=== PATIENT | female | born 1955 | race Caucasian/White ===

== ENCOUNTER 2020-12-13 15:08 | Observation (INO) ==
[2020-12-13] MEDS ORDERED: OPTIRAY 350 500ml IV ONE (15:18)
--- NOTE | 2020-12-13 15:19 | CT Scan Report ---
CT OF THE HEAD WITHOUT CONTRAST CLINICAL HISTORY: Stroke alert. Left-sided facial numbness. COMPARISON STUDY: No previous studies for comparison. CT DOSE: 537.48 mGy.cm TECHNIQUE: Helical axial images of the head were obtained without IV contrast. Automated exposure con trol was utilized for the study. A dose lowering technique was utilized adhering to the principles o f ALARA. FINDINGS: No acute intracranial hemorrhage, midline shift or mass effect is present. The ventricular system is unremarkable. The basal cisterns are patent. No extra-axial collections are present. There are no findings to suggest acute dural sinus thrombosis or acute territorial infarct. No significant calvarial abnormalities are present. Visualized portions of the sinuses and mastoid air cells are yelena ar. IMPRESSION: No acute intracranial findings. ACT 112: Negative or not required by law. Electronically signed by: Srinivasa Ortez M.D. 12/13/2020 3:18 PM
--- NOTE | 2020-12-13 15:40 | CT Scan Report ---
CT ANGIOGRAPHY OF THE NECK WITH CONTRAST CLINICAL HISTORY: Left-sided facial numbness. Stroke alert. COMPARISON STUDY: No previous studies for comparison. Technique: CT angiography of the carotid and vertebral arteries was obtained using Optiray and 3D rec onstruction on an independent workstation. NASCET criteria was utilized. Automated exposure control was utilized for the study. A dose lowering technique was utilized adhering to the principles of ALA RA. CT DOSE: 547.39 mGy.cm Findings: Lung apices are clear. There is no cervical lymphadenopathy. There is no cervical spine fra cture. Note is made of a short segment severe stenosis at the origin of the right internal carotid ar mando due to atherosclerotic plaque. The vessel measures 1.1 mm in caliber at site of stenosis and 4.5 mm distally. There is mild plaque within the proximal left internal carotid artery without stenosis. Bilateral vertebral arteries are patent. There is no dissection within the major vessels of the neck . There is no aneurysm. IMPRESSION: 1. Severe short segment stenosis (80%) of the proximal right internal carotid artery due to atheroscl erotic plaque. 2. No additional stenoses within the major vessels of the neck. ACT 112: Negative or not required by law. Electronically signed by: Srinivasa Ortez M.D. 12/13/2020 3:39 PM
--- NOTE | 2020-12-13 15:44 | Emergency Department Note ---
Impression & Plan Left facial numbness, HTN (hypertension), Arm numbness left, Hypomagnesemia, Hypokalemia ED Provider Note Provider: Giovanni Burch MD DATE OF SERVICE: 12/13/2020 CHIEF COMPLAINT: Facial and arm numbness HISTORY OF PRESENT ILLNESS: Patient is a 65-year-old female with a past medical history of hypertension presenting here today with the onset she states around 2 PM of left arm and left facial numbness. States she was at home watching [employer] on TV and the confusion started 2 PM when she suddenly noticed onset of left numbness of the left hand wrist and forearm as well as numbness in left face. States her right eye twitched a little bit as well but denies any pain. Denies acute visual change, dizziness, headache, or being unbalanced. Denies difficulty speaking or swallowing. Denies any chest pain or shortness of breath. Denies any leg numbness or weakness. Patient states she was trying to move her arms at home to make sure they are working okay (which they were per her report) and had waited a few minutes to see if things would get better. As symptoms persisted when her came in from outside they came here via private vehicle to the hospital for evaluation. No prior history of similar. No trauma reported. Patient denies a history of CVA or stroke. REVIEW OF SYSTEMS: A total of 10 review of systems was obtained and negative except as stated above in the HPI. 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 PERRL, EOMI. NECK: Trachea midline. Supple. ENT: Mucous membranes pink and moist. Pharynx without erythema or exudate. LUNGS: Airway patent. No retractions. Breath sounds clear with good air entry bilaterally. HEART: Regular rate and rhythm. No chest wall tenderness ABDOMEN: Soft and non-tender, without guarding or rebound. SKIN: Acyanotic, warm, dry, without rashes EXTREMITIES: Without swelling, tenderness or deformity NEUROLOGICAL: No aphasia. No facial droop or slurred speech. Normal strength and tone in the extremities. Ambulatory. Slightly decreased sensation of the left hand and forearm below the left elbow. Intact motor strength and the patient does feel gross touch here. Some slightly diminished sensation of the left face including the forehead. Intact strength with eye closure. Tongue is midline. No pronator drift. No finger-nose ataxia. EK bpm normal sinus rhythm. No PVC or PAC. Anterior T wave inversions without acute ST segment elevation. Some slight baseline artifact with a prolonged QTC of 497. CONTINUOUS CARDIAC MONITORING: was ordered and showed a heart rate of 70s to 90s bpm in normal sinus rhythm Patient's laboratory studies and imaging reviewed. Differential includes Infection, dehydration, metabolic abnormality, hypo/hyperglycemia, electrolyte disturbance, anemia, hypoxia, cardiac sources, intracerebral event, toxicologic, neurologic, as well as other pathologies. IMPRESSION/MEDICAL DECISION MAKING: Patient presents with sudden onset of left upper extremity and left facial numbness. No weakness appreciated. Made a stroke alert from triage. CT of the head without acute intracranial bleed. CTAs were obtained. Basic blood work was obtained. Patient denies any pain at this time. Minimal symptoms at this time with just some numbness of the left face and arm but the low NIH. Patient is significantly hypertensive upon arrival here. She does appear somewhat anxious reasonable given the circumstances. Infectious and metabolic work-up was proceeded with but I doubt this is acute meningitis. Patient with some hypokalemia and hypomagnesemia. There is no traumatic history of concern. Discussed with the patient as well as telestroke Dr. Martínez and do not feel TPA would be indicated given her minimal symptomatologies. Could very well be a possible small vessel stroke. Some right ICA stenosis of 80% is noted. Aspirin and Plavix recommended by telestroke. Will allow permissive hypertension given some concern for stroke. This does not sound consistent with seizure. Lower suspicion at this time acute hypertensive emergency. Again discussed with the patient TPA risk and benefits and patient declines which I believe is reasonable and in discussion with telestroke their recommendation as well. Will bring the patient in to the hospital for further evaluation and MRI. DIAGNOSIS: Left-sided facial numbness,left arm numbness, hypomagnesemia, hypokalemia, hypertension DISPOSITION: Hospitalist will evaluate Patient was agreeable with this plan. Past Med/Surg History Social History Smoking Status: Never smoker Feels Safe at Home: Yes Allergies Allergies Allergy/AdvReac Type Severity Reaction Status Date / Time pseudoephedrine AdvReac Unknown UNKNOWN Unverified 12/13/20 15:44 Home Meds Home Medications Medication Instructions Recorded Confirmed chlorthalidone 25 mg PO QAM 12/13/20 12/13/20 pantoprazole 40 mg PO DAILYBB 12/13/20 12/13/20 Results & Data (ED) Vital Signs Vital Signs - 24 hr 12/13/20 15:11 12/13/20 15:29 12/13/20 15:30 Temperature 36.9 C Temperature Source Temporal Artery Scan Pulse Rate 92 H 86 85 Pulse Rate from SpO2 Sensor 84 Respiratory Rate 18 17 17 Respiratory Effort / Characteristics Non-Labored Respiratory Depth Normal Blood Pressure 188/111 H Blood Pressure Mean 136 Pulse Oximetry 97 98 Oxygen Delivery Method Sepsis Recent Fever Within 48 Hours No Sepsis New/Unexplained Change in Mental Status No Sepsis Action Taken by Nursing No Action Required 12/13/20 15:31 12/13/20 15:38 12/13/20 15:40 Temperature Temperature Source Pulse Rate 82 77 Pulse Rate from SpO2 Sensor 83 73 Respiratory Rate 14 20 Respiratory Effort / Characteristics Respiratory Depth Blood Pressure 208/103 H 196/100 H Blood Pressure Mean 138 132 Pulse Oximetry 99 98 Oxygen Delivery Method Room Air Sepsis Recent Fever Within 48 Hours Sepsis New/Unexplained Change in Mental Status Sepsis Action Taken by Nursing 12/13/20 16:00 Temperature Temperature Source Pulse Rate 77 Pulse Rate from SpO2 Sensor 77 Respiratory Rate 12 Respiratory Effort / Characteristics Respiratory Depth Blood Pressure Blood Pressure Mean Pulse Oximetry 99 Oxygen Delivery Method Sepsis Recent Fever Within 48 Hours Sepsis New/Unexplained Change in Mental Status Sepsis Action Taken by Nursing Laboratory Data Result diagrams: 12/13/20 15:36 12/13/20 15:36 Lab Results 12/13/20 12/13/20 12/13/20 Range/Units 15:29 15:36 15:36 WBC 10.16 (4.8-10.8) K/uL RBC 4.33 (4.2-5.4) M/uL Hgb 14.3 (12.0-16.0) g/dL Hct 40.7 (37-47) % MCV 94.0 (80-100) fL MCH 33.0 (25-34) pg MCHC 35.1 (32-36) g/dL RDW Std Deviation 44.1 (36.4-46.3) fL RDW Coeff of Lawrence 12.8 (11.5-14.5) % Plt Count 276 (130-400) K/uL MPV 11.5 H (7.4-10.4) fL PT 10.4 (9.0-12.0) Seconds INR 1.0 (0.9-1.1) APTT 25.1 (21.0-31.0) Seconds PTT Ratio 1.0 Sodium (136-145) mmol/L Potassium (3.5-5.1) mmol/L Chloride (98-107) mmol/L Carbon Dioxide (21-32) mmol/L Anion Gap (3-11) BUN (7-18) mg/dl Creatinine (0.6-1.2) mg/dl Est Cr Clr Drug Dosing ml/min Est GFR ( Amer) ml/min Est GFR (Non-Af Amer) ml/min BUN/Creatinine Ratio (10-20) Glucose (70-99) mg/dl POC Glucose 88 (70-99) mg/dl Calcium (8.5-10.1) mg/dl Magnesium (1.8-2.4) mg/dl Total Bilirubin (0.2-1) mg/dl AST (15-37) U/L ALT (12-78) U/L Alkaline Phosphatase (45-117) U/L Total Protein (6.4-8.2) gm/dl Albumin (3.4-5.0) gm/dl Globulin (2.5-4.0) gm/dl Albumin/Globulin Ratio (0.9-2) COVID-19 Eval Order 12/13/20 12/13/20 Range/Units 15:36 16:03 WBC (4.8-10.8) K/uL RBC (4.2-5.4) M/uL Hgb (12.0-16.0) g/dL Hct (37-47) % MCV (80-100) fL MCH (25-34) pg MCHC (32-36) g/dL RDW Std Deviation (36.4-46.3) fL RDW Coeff of Lawrence (11.5-14.5) % Plt Count (130-400) K/uL MPV (7.4-10.4) fL PT (9.0-12.0) Seconds INR (0.9-1.1) APTT (21.0-31.0) Seconds PTT Ratio Sodium 133 L (136-145) mmol/L Potassium 2.9 L (3.5-5.1) mmol/L Chloride 97 L (98-107) mmol/L Carbon Dioxide 29 (21-32) mmol/L Anion Gap 7.0 (3-11) BUN 12 (7-18) mg/dl Creatinine 0.54 L (0.6-1.2) mg/dl Est Cr Clr Drug Dosing 114.2 ml/min Est GFR ( Amer) 116.4 ml/min Est GFR (Non-Af Amer) 100.4 ml/min BUN/Creatinine Ratio 22.0 H (10-20) Glucose 92 (70-99) mg/dl POC Glucose (70-99) mg/dl Calcium 8.8 (8.5-10.1) mg/dl Magnesium 1.7 L (1.8-2.4) mg/dl Total Bilirubin 0.5 (0.2-1) mg/dl AST 74 H (15-37) U/L ALT 59 (12-78) U/L Alkaline Phosphatase 101 (45-117) U/L Total Protein 7.3 (6.4-8.2) gm/dl Albumin 3.1 L (3.4-5.0) gm/dl Globulin 4.2 H (2.5-4.0) gm/dl Albumin/Globulin Ratio 0.7 L (0.9-2) COVID-19 Eval Order Covid19 at [facility] Administered Medications Magnesium Sulfate/Dextrose (Magnesium Sulfate / D5w) 1 gm in 100 mls @ 100 mls/hr IV NOW STA Stop: 12/13/20 17:04 Last Admin: 12/13/20 16:13 Dose: 100 mls/hr Documented by: [id number] Discontinued Medications Aspirin (Aspirin Chew 324 Mg) 324 mg PO NOW STA Stop: 12/13/20 16:05 Last Admin: 12/13/20 16:13 Dose: 324 mg Documented by: [id number] Clopidogrel Bisulfate (Clopidogrel Bisulfate 75 Mg Tab) 75 mg PO NOW ONE Stop: 12/13/20 16:05 Last Admin: 12/13/20 16:13 Dose: 75 mg Documented by: [id number] Sodium Chloride (Nss) 500 mls @ 999 mls/hr IV .Q31M ONE Stop: 12/13/20 16:35 Last Admin: 12/13/20 16:16 Dose: 999 mls/hr Documented by: [id number] Ioversol (Optiray 350 500ml) 120 ml IV ONCE ONE Stop: 12/13/20 15:19 Last Admin: 12/13/20 15:21 Dose: 120 ml Documented by: [id number] Imaging Data Radiologist's Impression: Chest X-Ray 12/13/20 15:10 XR chest 1V portable CLINICAL HISTORY: stroke alert COMPARISON STUDY: Chest radiograph July 05, 2016. FINDINGS: Lung volumes are normal. Lungs are clear. There is no pneumothorax or pleural effusion. Cardiac size is normal. Mediastinal contours are normal. There is no evidence for pulmonary edema. IMPRESSION: No acute cardiopulmonary findings. ACT 112: Negative or not required by law. Electronically signed by: Srinivasa Ortez M.D. 12/13/2020 3:[address] 12/13/20 15:10 CT OF THE HEAD WITHOUT CONTRAST CLINICAL HISTORY: Stroke alert. Left-sided facial numbness. COMPARISON STUDY: No previous studies for comparison. CT DOSE: 537.48 mGy.cm TECHNIQUE: Helical axial images of the head were obtained without IV contrast. Automated exposure control was utilized for the study. A dose lowering te chnique was utilized adhering to the principles of ALARA. FINDINGS: No acute intracranial hemorrhage, midline shift or mass effect is present. The ventricular system is unremarkable. The basal cisterns are patent. No extra-axial collections are present. There are no findings to suggest acute dural sinus thrombosis or acute territorial infarct. No significant calvarial abnormalities are present. Visualized portions of the sinuses and mastoid air cells are clear. IMPRESSION: No acute intracranial findings. ACT 112: Negative or not required by law. Electronically signed by: Srinivasa Ortez M.D. 12/13/2020 3:18 PM Head CTA 12/13/20 15:16 CTA ANGIOGRAPHY OF THE HEAD CLINICAL HISTORY: Left facial numbness. Stroke alert. COMPARISON STUDY: No previous studies for comparison. TECHNIQUE: Helical axial images of the head were obtained following uneventful intravenous administration of 120 cc of Optiray. Sagittal and coronal reconstructions were viewed as well as maximal intensity projections on an independent 3-D workstation. Automated exposure control was utilized for the study. A dose lowering technique was utilized adhering to the principles of ALARA. FINDINGS: No acute intracranial hemorrhage, midline shift or mass effect is present. Ventricular system is normal. Basal cisterns are patent. There are no extra-axial collections. The bilateral M1, M2, A1 and A2 segments are patent. There is no central vessel occlusion. There is no intracranial aneurysm. There is mild plaque within the bilateral cavernous carotids. Posterior circulation is intact. IMPRESSION: No central vessel occlusion. No intracranial aneurysm. ACT 112: Negative or not required by law. Electronically signed by: Srinivasa Ortez M.D. 12/13/2020 3:43 PM Neck CTA 12/13/20 15:16 CT ANGIOGRAPHY OF THE NECK WITH CONTRAST CLINICAL HISTORY: Left-sided facial numbness. Stroke alert. COMPARISON STUDY: No previous studies for comparison. Technique: CT angiography of the carotid and vertebral arteries was obtained using Optiray and 3D reconstruction on an independent workstation. NASCET criteria was utilized. Automated exposure control was utilized for the study. A dose lowering technique was utilized adhering to the principles of ALARA. CT DOSE: 547.39 mGy.cm Findings: Lung apices are clear. There is no cervical lymphadenopathy. There is no cervical spine fracture. Note is made of a short segment severe stenosis at the origin of the right internal carotid artery due to atherosclerotic plaque. The vessel measures 1.1 mm in caliber at site of stenosis and 4.5 mm distally. There is mild plaque within the proximal left internal carotid artery without stenosis. Bilateral vertebral arteries are patent. There is no dissection within the major vessels of the neck. There is no aneurysm. IMPRESSION: 1. Severe short segment stenosis (80%) of the proximal right internal carotid artery due to atherosclerotic plaque. 2. No additional stenoses within the major vessels of the neck. ACT 112: Negative or not required by law. Electronically signed by: Srinivasa Ortez M.D. 12/13/2020 3:39 PM Discharge Plan Visit Data Chief Complaint: Neuro Symptoms/Deficit Stated Complaint: FACIAL NUMBNESS AND LEFT ARM NUMBNESS ED Provider: Giovanni Burch Discharge Problem: Left facial numbness, HTN (hypertension), Arm numbness left, Hypomagnesemia, Hypokalemia Patient Disposition: Being Evaluated by Hospitalist Forms [facility] [employer] [employer] Prescriptions Prescriptions: No Action chlorthalidone 25 mg tablet 25 mg PO QAM RF: 0 pantoprazole 40 mg tablet,delayed release (DR/EC) 40 mg PO DAILYBB RF: 0 Referrals Referrals: Evelio Stephens MD [Primary Care Provider] - Discharge Problem: HTN (hypertension) Qualifiers: Hypertension type: unspecified Qualified Code(s): I10 - Essential (primary) hypertension
--- NOTE | 2020-12-13 15:45 | CT Scan Report ---
CTA ANGIOGRAPHY OF THE HEAD CLINICAL HISTORY: Left facial numbness. Stroke alert. COMPARISON STUDY: No previous studies for comparison. TECHNIQUE: Helical axial images of the head were obtained following uneventful intravenous administr ation of 120 cc of Optiray. Sagittal and coronal reconstructions were viewed as well as maximal inten sity projections on an independent 3-D workstation. Automated exposure control was utilized for the study. A dose lowering technique was utilized adhering to the principles of ALARA. FINDINGS: No acute intracranial hemorrhage, midline shift or mass effect is present. Ventricular syst em is normal. Basal cisterns are patent. There are no extra-axial collections. The bilateral M1, M2, A1 and A2 segments are patent. There is no central vessel occlusion. There is no intracranial aneurys m. There is mild plaque within the bilateral cavernous carotids. Posterior circulation is intact. IMPRESSION: No central vessel occlusion. No intracranial aneurysm. ACT 112: Negative or not required by law. Electronically signed by: Srinivasa Ortez M.D. 12/13/2020 3:43 PM
[2020-12-13 15:46] LABS: Hematocrit (blood only) 40.7 % (37-47); Hemoglobin 14.3 g/dL (12.0-16.0); Mean Corpuscular Hgb Conc 35.1 g/dL (32-36); Mean Platelet Volume 11.5 fL (7.4-10.4); Platelet Count 276 K/uL (130-400); RDW Coefficient of Variation 12.8 % (11.5-14.5); RDW Standard Deviation 44.1 fL (36.4-46.3); Red Blood Count 4.33 M/uL (4.2-5.4); White Blood Count 10.16 K/uL (4.8-10.8)
--- NOTE | 2020-12-13 15:52 | XRay Report ---
XR chest 1V portable CLINICAL HISTORY: stroke alert COMPARISON STUDY: Chest radiograph July 05, 2016. FINDINGS: Lung volumes are normal. Lungs are clear. There is no pneumothorax or pleural effusion. Car diac size is normal. Mediastinal contours are normal. There is no evidence for pulmonary edema. IMPRESSION: No acute cardiopulmonary findings. ACT 112: Negative or not required by law. Electronically signed by: Srinivasa Ortez M.D. 12/13/2020 3:50 PM
[2020-12-13 16:02] LABS: Albumin Level 3.1 gm/dl (3.4-5.0); Calcium 8.8 mg/dl (8.5-10.1); Creatinine Clr Calc Pharmacy 114.2 ml/min; Est GFR (African American) 116.4 ml/min; Est GFR (Non-African American) 100.4 ml/min; Magnesium 1.7 mg/dl (1.8-2.4); Potassium 2.9 mmol/L (3.5-5.1)
[2020-12-13] MEDS ORDERED: CLOPIDOGREL BISULFATE 75 MG TAB PO ONE (16:04)
[2020-12-13] MEDS ORDERED: ASPIRIN CHEW 324 MG PO STA (16:04)
[2020-12-13 16:05] LABS: Albumin Globulin Ratio 0.7 (0.9-2); Bilirubin,Total 0.5 mg/dl (0.2-1); Globulin 4.2 gm/dl (2.5-4.0); Partial Thromboplastin Time 25.1 Seconds (21.0-31.0); Prothrombin Time 10.4 Seconds (9.0-12.0); Total Protein 7.3 gm/dl (6.4-8.2)
[2020-12-13] MEDS ORDERED: MAGNESIUM SULFATE / D5W 1 GM/100 ML BAG IV STA (16:05)
[2020-12-13] MEDS ORDERED: SODIUM CHLORIDE 0.9% 500 ML IV ONE (16:05)
[2020-12-13] MEDS ORDERED: POTASSIUM CHLORIDE CRTAB 20 MEQ TABCR PO STA (16:58)
[2020-12-13] MEDS ORDERED: POTASSIUM CHLORIDE / WTR 10 MEQ/100 ML PLCT IV ONE ×2 (16:58→19:02)
[2020-12-13] MEDS ORDERED: POTASSIUM CHLORIDE 10 MEQ / 100ML WTR IV ONE (17:03)
--- NOTE | 2020-12-13 17:10 | History & Physical Report ---
Date of Service December 13, 2020 Assessment & Plan (1) Left facial numbness: (2) Arm numbness left: (3) Carotid stenosis, right: Pt is 65 y/o F with PMH hypertension, GERD presented to ER with complaint of left face and left hand paresthesias started at 2 PM today. Denies ENGLE, dizziness, extremity weakness, CP, SOB In ER patient afebrile, BP: 188/111, P: 92, R: 18, 97% on room air. CT head without contrast: no acute intracranial findings, CTA head: No central vessel occlusion. No intracranial aneurysm. CTA neck: Severe short segment stenosis (80%) of the proximal right internal carotid artery due to atherosclerotic plaque ER physician spoke to telemetry stroke neurologist who recommended holding on TPA at this time, and starting aspirin, Plavix. In ER patient was given aspirin 324 mg p.o., Plavix 75 mg p.o. During ER course patient with resolving symptoms and decreased paresthesias of left face and left hand. No extremity weakness at time of admission DDX: TIA, CVA, hypertensive emergency -Tele to monitor for arrhythmias -EKG in am -trend troponin -lipids, HA1C, TSH in am -MRI brain -echo with bubble study -aspiration precautions -PT/OT consult -start statin, plavix, and aspirin -allow permissive HTN in first 24 hours, labetalol prn -neurology consult (4) HTN (hypertension): Hypertensive in ER with BP 188/100, 189/107 -Follow-up permissive hypertension, labetalol as needed -Continue chlorthalidone (5) Hypokalemia: K: 2.9 -Replace and monitor (6) Hypomagnesemia: -Ma.7 -Replace and monitor (7) GERD (gastroesophageal reflux disease): -Continue PPI DVT Prophylaxis -SCDs Full Code as per discussion with pt Follows with Dr Stephens for routine care Pt was seen and care coordinated with Dr Bolton. See addendum History of Present Illness Chief Complaint: left face and left hand tingling Primary Care Provider: Evelio Stephens MD Pt is 65 y/o F with PMH hypertension, GERD presented to ER with complaint of left face and left hand paresthesias started at 2 PM today. Patient states was sitting watching TV when she had sudden onset of left face numbness and tingling and left upper extremity tingling. She states she was able to fully move all of her extremities and did not feel weakness. Denies any headache, dizziness, vision changes. Reports her came in the house several minutes after symptom onset and did not notice any facial drooping or speech abnormality. Patient drove herself to the ER. Denies any head injury or trauma. Denies fever/chills, diaphoresis, N/V/D/C, syncope, neck pain, CP, SOB, orthopnea, palpitations, cough, sore throat, choking, otalgia, rhinorrhea, abdominal pain, lower extremity paresthesias, extremity weakness, extremity edema, rashes, urinary symptoms. In ER CT head without contrast with no acute intracranial findings, CTA head: No central vessel occlusion. No intracranial aneurysm. CTA neck: Severe short segment stenosis (80%) of the proximal right internal carotid artery due to atherosclerotic plaque ER physician spoke to telemetry stroke neurologist who recommended holding on TPA at this time, and starting aspirin, Plavix. In ER patient was given aspirin 324 mg p.o., Plavix 75 mg p.o. During ER course patient with decreased paresthesias of left face and left hand Allergies Allergy/AdvReac Type Severity Reaction Status Date / Time pseudoephedrine AdvReac Unknown UNKNOWN Unverified 12/13/20 15:44 Home Medications Medication Instructions Recorded Confirmed Type chlorthalidone 25 mg PO QAM 12/13/20 12/13/20 History pantoprazole 40 mg PO DAILYBB 12/13/20 12/13/20 History Past Med/Surg History Medical History (Updated 12/13/20 @ 17:17 by Barbara Ryan PA-C) GERD (gastroesophageal reflux disease) HTN (hypertension) Surgical History (Updated 12/13/20 @ 17:07 by Barbara Ryan PA-C) H/O colonoscopy History of endometrial ablation History of esophagogastroduodenoscopy (EGD) Hx of tonsillectomy Family History (Updated 12/13/20 @ 17:08 by Barbara Ryan PA-C) Grandmother (Maternal) Hypertension Colorectal cancer Grandfather (Maternal) Cancer bladder CA Social History (Updated 12/13/20 @ 17:08 by Barbara Ryan PA-C) Smoking Status: Never smoker Hx Alcohol Use: Yes (1-2 glasses wine 3 x a week) Hx Substance Use: No Feels Safe at Home: Yes Review of Systems Review of Systems: All systems reviewed & are unremarkable except as noted in HPI & below Physical Exam Physical Exam: General: no distress, WDWN Head: normocephalic, atraumatic Eyes: PERRL, EOM's intact, conjunctiva non-injected, anicteric ENT: normal inspection external ears, nose, mucous membranes moist Neck: supple, trachea midline Lungs: clear, no respiratory distress, no wheezing/rhonchi/rales CV: RRR, no murmur, no pretibial edema Abd: normal BS, soft, non-tender Ext: no cyanosis, no calf tenderness Neuro: A&O x 3, normal affect, no nystagmus, facial sensation is intact and symmetric, The face is strong and symmetric, Hearing grossly intact, Soft palate elevates symmetrically, no dysarthria, Shoulder shrug intact, Tongue is midline, normal movement, no fasciculations, Muscle tone normal. Strength 5/5 throughout, finger to nose intact Skin: warm, dry Results & Data Results & Data ([facility]) Vital Signs (Past 12 Hours) Vital Signs Temp Pulse Resp BP Pulse Ox 12/13/20 16:00 77 12 99 12/13/20 15:40 77 20 196/100 H 98 12/13/20 15:31 82 14 208/103 H 99 12/13/20 15:30 85 17 98 12/13/20 15:29 86 17 12/13/20 15:11 36.9 C 92 H 18 188/111 H 97 Laboratory Results Short CBC 12/13/20 Range/Units 15:36 WBC 10.16 (4.8-10.8) K/uL Hgb 14.3 (12.0-16.0) g/dL Hct 40.7 (37-47) % Plt Count 276 (130-400) K/uL BMP 12/13/20 15:36 Sodium 133 L Potassium 2.9 L Chloride 97 L Carbon Dioxide 29 BUN 12 Creatinine 0.54 L Glucose 92 Calcium 8.8 Liver Function 12/13/20 Range/Units 15:36 Total Bilirubin 0.5 (0.2-1) mg/dl AST 74 H (15-37) U/L ALT 59 (12-78) U/L Alkaline Phosphatase 101 (45-117) U/L Albumin 3.1 L (3.4-5.0) gm/dl Diagnostic Findings Chest X-Ray 12/13/20 15:10 XR chest 1V portable CLINICAL HISTORY: stroke alert COMPARISON STUDY: Chest radiograph July 05, 2016. FINDINGS: Lung volumes are normal. Lungs are clear. There is no pneumothorax or pleural effusion. Cardiac size is normal. Mediastinal contours are normal. There is no evidence for pulmonary edema. IMPRESSION: No acute cardiopulmonary findings. ACT 112: Negative or not required by law. Electronically signed by: Srinivasa Ortez M.D. 12/13/2020 3:[address] 12/13/20 15:10 CT OF THE HEAD WITHOUT CONTRAST CLINICAL HISTORY: Stroke alert. Left-sided facial numbness. COMPARISON STUDY: No previous studies for comparison. CT DOSE: 537.48 mGy.cm TECHNIQUE: Helical axial images of the head were obtained without IV contrast. Automated exposure control was utilized for the study. A dose lowering technique was utilized adhering to the principles of ALARA. FINDINGS: No acute intracranial hemorrhage, midline shift or mass effect is present. The ventricular system is unremarkable. The basal cisterns are patent. No extra-axial collections are present. There are no findings to suggest acute dural sinus thrombosis or acute territorial infarct. No significant calvarial abnormalities are present. Visualized portions of the sinuses and mastoid air cells are clear. IMPRESSION: No acute intracranial findings. ACT 112: Negative or not required by law. Electronically signed by: Srinivasa Ortez M.D. 12/13/2020 3:18 PM Head CTA 12/13/20 15:16 CTA ANGIOGRAPHY OF THE HEAD CLINICAL HISTORY: Left facial numbness. Stroke alert. COMPARISON STUDY: No previous studies for comparison. TECHNIQUE: Helical axial images of the head were obtained following uneventful intravenous administration of 120 cc of Optiray. Sagittal and coronal reconstructions were viewed as well as maximal intensity projections on an independent 3-D workstation. Automated exposure control was utilized for the study. A dose lowering technique was utilized adhering to the principles of ALARA. FINDINGS: No acute intracranial hemorrhage, midline shift or mass effect is present. Ventricular system is normal. Basal cisterns are patent. There are no e xtra-axial collections. The bilateral M1, M2, A1 and A2 segments are patent. There is no central vessel occlusion. There is no intracranial aneurysm. There is mild plaque within the bilateral cavernous carotids. Posterior circulation is intact. IMPRESSION: No central vessel occlusion. No intracranial aneurysm. ACT 112: Negative or not required by law. Electronically signed by: Srinivasa Ortez M.D. 12/13/2020 3:43 PM Neck CTA 12/13/20 15:16 CT ANGIOGRAPHY OF THE NECK WITH CONTRAST CLINICAL HISTORY: Left-sided facial numbness. Stroke alert. COMPARISON STUDY: No previous studies for comparison. Technique: CT angiography of the carotid and vertebral arteries was obtained using Optiray and 3D reconstruction on an independent workstation. NASCET criteria was utilized. Automated exposure control was utilized for the study. A dose lowering technique was utilized adhering to the principles of ALARA. CT DOSE: 547.39 mGy.cm Findings: Lung apices are clear. There is no cervical lymphadenopathy. There is no cervical spine fracture. Note is made of a short segment severe stenosis at the origin of the right internal carotid artery due to atherosclerotic plaque. The vessel measures 1.1 mm in caliber at site of stenosis and 4.5 mm distally. There is mild plaque within the proximal left internal carotid artery without stenosis. Bilateral vertebral arteries are patent. There is no dissection within the major vessels of the neck. There is no aneurysm. IMPRESSION: 1. Severe short segment stenosis (80%) of the proximal right internal carotid artery due to atherosclerotic plaque. 2. No additional stenoses within the major vessels of the neck. ACT 112: Negative or not required by law. Electronically signed by: Srinivasa Ortez M.D. 12/13/2020 3:39 PM Code Status & VTE Plan VTE Prophylaxis Plan VTE Prophylaxis will be ordered: Yes Supervising Physician Co-Signing Physician Notes Attending addendum: Patient was seen and examined in the emergency room She was admitted with left facial numbness and left arm numbness and is out of TPA window Her symptoms completely resolved when I examined her in the emergency room Her blood pressure noted to be high but otherwise no symptoms reported On examination Anxious but no apparent distress Hemodynamically stable with blood pressure on the higher side at 189/107 Chest-clear to auscultate bilaterally HeartS1-S2 regular no murmur Abdomen--benign Extremities-negative for any edema SCRUB NURSE-alert, awake and oriented x3. No focal sensory and motor deficit appreciated. No facial asymmetry and cranial nerves are intact Her admission labs, EKG and imaging studies reviewed Strokelike symptoms status post stroke alert and not for TPA Her symptoms are resolving and she has been put on aspirin and Plavix and other stroke preventive medications Neuro consult Permissive hypertension Agree with assessment and plan as outlined above by TSERING Ayon Dr (1) HTN (hypertension) Hypertension type: unspecified Qualified Code(s): I10 - Essential (primary) hypertension
[2020-12-13 18:27] LABS: Appearance Urine Clear (Clear); Bilirubin Urine Negative (Negative); Blood Urine Negative (Negative); Color Urine Yellow; Glucose Urine UA Negative (Negative); Ketones Urine Negative (Negative); Leukocyte Esterase Urine Negative (Negative); Nitrite Urine Negative (Negative); Protein Urine Negative (Negative); Specific Gravity Urine 1.021 (1.000-1.030); Urobilinogen Urine Negative (Negative); pH Urine 7.5 (4.5-7.5)
[2020-12-13] MEDS ORDERED: ACETAMINOPHEN 325 MG TAB PO PRN (19:02)
[2020-12-13] MEDS ORDERED: LABETALOL HCL IV 5 MG/ML 20ML IV PRN (19:02)
[2020-12-13] MEDS ORDERED: PHARMACIST DISCHARGE MED REC CONSULT PRN (19:02)
[2020-12-13] MEDS ORDERED: LORazepam 1 MG TAB PO SCH (19:15)
[2020-12-13] MEDS ORDERED: POTASSIUM CHLORIDE CRTAB 20 MEQ TABCR PO ONE (21:00)
[2020-12-13 22:14] LABS: Troponin I < 0.015 ng/ml (0-0.045)
[2020-12-14 04:08] LABS: Basophils # (auto) 0.05 K/uL (0-0.2); Basophils % (auto) 0.6 %; Eosinophils % (auto) 3.4 %; Hematocrit (blood only) 40.4 % (37-47); Immature Granulocytes # (auto) 0.02 K/uL (0.00-0.02); Immature Granulocytes % (auto) 0.2 %; Lymphocytes # (auto) 2.23 K/uL (1.2-3.4); Lymphocytes % (auto) 25.5 %; Mean Corpuscular Hemoglobin 33.7 pg (25-34); Mean Corpuscular Hgb Conc 34.7 g/dL (32-36); Mean Corpuscular Volume 97.1 fL (80-100); Mean Platelet Volume 11.9 fL (7.4-10.4); Monocytes # (auto) 0.56 K/uL (0.11-0.59); Monocytes % (auto) 6.4 %; Neutrophils # (auto) 5.58 K/uL (1.4-6.5); Neutrophils % (auto) 63.9 %; Platelet Count 287 K/uL (130-400); RDW Coefficient of Variation 13.1 % (11.5-14.5); RDW Standard Deviation 46.3 fL (36.4-46.3); Red Blood Count 4.16 M/uL (4.2-5.4); White Blood Count 8.74 K/uL (4.8-10.8)
[2020-12-14 04:28] LABS: BUN Creatinine Ratio 16.3 (10-20); Creatinine Clr Calc Pharmacy 127.6 ml/min; Est GFR (Non-African American) 104.4 ml/min; Magnesium 2.3 mg/dl (1.8-2.4); Potassium 3.9 mmol/L (3.5-5.1)
[2020-12-14] MEDS ORDERED: PANTOprazole 40 MG TAB PO SCH (06:30)
[2020-12-14] MEDS ORDERED: ASPIRIN 81 MG ECTAB PO SCH (09:00)
[2020-12-14] MEDS ORDERED: CLOPIDOGREL BISULFATE 75 MG TAB PO SCH (09:00)
[2020-12-14] MEDS ORDERED: CHLORTHALIDONE 25 MG TAB PO SCH (09:00)
[2020-12-14] MEDS ORDERED: ATORVASTATIN 40 MG TAB PO SCH (09:00)
[2020-12-14] MEDS ORDERED: LORazepam 1 MG TAB ONE (09:50)
--- NOTE | 2020-12-14 10:35 | Electrocardiogram Report ---
Test Reason : Blood Pressure : / mmHG Vent. Rate : 082 BPM Atrial Rate : 082 BPM P-R Int : 150 ms QRS Dur : 094 ms QT Int : 426 ms P-R-T Axes : 067 047 073 degrees QTc Int : 497 ms Normal sinus rhythm with sinus arrhythmia Prolonged QT Abnormal ECG When compared with ECG of 06-JUL-2016 06:50, ST now depressed in Anterior leads Confirmed by Joseph Mast ([id number]) on 12/14/2020 10:35:30 AM Referred By: REFERRED SELF Confirmed By:Joseph Mast
[2020-12-14] MEDS ORDERED: GADOBUTROL 30ML VIAL IV ONE (11:30)
--- NOTE | 2020-12-14 11:50 | Magnetic Resonance Report ---
MRI OF THE BRAIN COMBO CLINICAL HISTORY: Left arm and facial numbness. COMPARISON STUDY: CT of the brain dated 12/13/2020. TECHNIQUE: MRI of the brain was performed utilizing various T1 and T2-weighted sequences in the axial , sagittal, and coronal planes. Contrast-enhanced sequences were acquired following the administratio n of 8 cc of Gadavist. FINDINGS: Brain parenchyma: There is mild microangiopathic change. There is no hemorrhage or mass effect. There is no restricted diffusion to suggest acute ischemia. No enhancing mass lesion is identified on the postcontrast images. Metcalf-white matter differentiation is preserved. No extra-axial fluid collection is seen. The cerebellar tonsils are normal in configuration. Ventricles, sulci, and cisterns: Normal in configuration. Pituitary and sella: Unremarkable. Intracranial vasculature: Normal flow voids are maintained at the skull base. Orbits: The bony orbits are grossly intact. Orbital contents are normal in appearance. Sinuses and mastoids: Clear. Calvarium: Unremarkable. Cervical cord: Partially visualized cervical spinal cord is normal in morphology and signal intensity . IMPRESSION: No acute intracranial abnormality. ACT 112: Negative or not required by law. Electronically signed by: Tan Yung M.D. 12/14/2020 11:49 AM
--- NOTE | 2020-12-14 14:06 | Progress Notes ---
DATE: 12/14/2020 REASON FOR CONSULTATION: Transient ischemic attack. HISTORY OF PRESENT ILLNESS: The patient is a 65-year-old right-handed female with a history of hypertension and reflux. Yesterday afternoon, she noted numbness and tingling in her left face and her left hand. There may have been some mild weakness. Those symptoms lasted over an hour and were not accompanied by headache. They resolved spontaneously in the Emergency Room. There was no scintillating visual phenomenon, change in speech or language, change in vision, facial droop. There was no change in gait. There was no vertigo. No chest pain, palpitations or shortness of breath. She has otherwise been well. She has not had any recent head or neck trauma, medical or dental procedures, chest pain or palpitations. The patient was seen in the hospital. CT of the head noncontrast was unremarkable. CTA of the neck showed a right internal carotid stenosis of 80%. I have reviewed those images. MRI of the brain did not show any acute abnormality. There are mild microangiopathic changes. Diagnostic testing including labs were notable for a normal H and H, normal platelet count, PT, PTT. Potassium on admission was 2.9. Sodium 133, magnesium 1.7, AST 74. Troponin negative. Total cholesterol 213, LDL 126, HDL 58. Urinalysis negative. Electrocardiogram showed normal sinus rhythm with sinus arrhythmia. Echocardiogram: Normal LV chamber size with mild concentric left ventricular hypertrophy, ejection fraction 60-65%, intraatrial septum is intact without evidence of an atrial septal defect and no intraatrial shunt. The left atria is normal size and the aortic root and proximal ascending aorta are normal. PAST MEDICAL HISTORY: As above. No history of MD, TIA, stroke, DVT. PAST SURGICAL HISTORY: Colonoscopy, ablation, EGD and tonsillectomy. ALLERGIES: SUDAFED WHICH CAUSED PALPITATIONS. HOME MEDICINES: Chlorthalidone and pantoprazole. FAMILY HISTORY: No family history of vascular disease. 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 The patient was markedly hypertensive on admission 196/100. PHYSICAL EXAMINATION: CURRENT VITAL SIGNS: 163/92, pulse 75, 36.8, 96% on room air. GENERAL: The patient is awake and alert. Speech and language are normal and affect is appropriate. She is oriented. NECK: There are no carotid bruits. HEART: No heart murmurs. Heart is regular rate and rhythm. NEUROLOGIC: Pupils are equal, round, reactive to light. The optic nerves are unremarkable. Ambrocio are full. Motility is normal. There is normal facial sensation and facial symmetry. Tongue is midline. Motor 5/5, no drift. Normal rapid alternating movements. Symmetric reflexes. Downgoing toes. [id number]-cvel and yjhr-[id number] are normal. Sensation is intact to light touch and temperature. IMPRESSION: Transient ischemic attack, most likely related to a high-grade carotid stenosis. PLAN: Dual antiplatelet therapy, statin therapy with goal LDL of 70. Gradual reduction of normotension. Vascular surgery consultation, post-discharge bunch maker hand. I have spoken to Dr. Bolton and he will reach out to Vascular Surgery regarding timing of the procedure. The patient has some questions about who she would want to have the surgeries and she will discuss that in further detail with Dr. Bolton. If she were to have recurrent episode, she would need to return to the hospital. The patient should see me post discharge.
--- NOTE | 2020-12-14 15:19 | Hospitalist Progress Note ---
Date of Service December 14, 2020 Assessment & Plan (1) Left facial numbness: Presented with left facial numbness Resolved (2) Arm numbness left: Presented with left arm numbness Resolved (3) Carotid stenosis, right: Pt is 65 y/o F with PMH hypertension, GERD presented to ER with complaint of left face and left hand paresthesias started at 2 PM today. Denies ENGLE, dizziness, extremity weakness, CP, SOB In ER patient afebrile, BP: 188/111, P: 92, R: 18, 97% on room air. CT head without contrast: no acute intracranial findings, CTA head: No central vessel occlusion. No intracranial aneurysm. CTA neck: Severe short segment stenosis (80%) of the proximal right internal carotid artery due to atherosclerotic plaque MRI of brain-no acute intracranial abnormality Echo of the heart- normal LV chamber size with concentric LVH, EF 60 to 65%, no segmental wall motion abnormalities, grade 1 diastolic dysfunction, no significant valvular pathology and no interatrial shunt. Clinically much better today and without any neuro symptoms All of her presenting symptoms resolved Her blood pressure remains in the upper side as expected She has been ambulating in the room without any difficulties Appreciate neurology input and recommendation She will have an appointment with outpatient vascular surgery within 7 to 10 days She will have aspirin and Plavix for 21 days and then to continue with aspirin Will a follow-up appointment with primary care doctor and neurologist (4) HTN (hypertension): Hypertensive in ER with BP 188/100, 189/107 -Follow-up permissive hypertension, labetalol as needed -Continue chlorthalidone -Blood pressure remains stable (5) Hypokalemia: K: 2.9 -Replace and monitor-potassium is normalized (6) Hypomagnesemia: -Ma.7 -Replace and monitor (7) GERD (gastroesophageal reflux disease): -Continue PPI DVT Prophylaxis -SCDs Full Code as per discussion with pt Follows with Dr Stephens for routine care She will be discharged home this afternoon Admission and Anticipated Discharge Date Admission Date: December 13, 2020 Subjective 12/14/2020 The patient was seen and examined in telemetry unit She was admitted with left facial numbness and left arm numbness and was out of TPA window Denies any symptoms today The blood pressure is reasonably controlled Review of Systems Review of Systems: All systems reviewed and are unremarkable except as noted below Neurologic: no paralysis and no paresthesia Physical Exam Physical Exam: Lying in bed comfortably Constitutional: well developed and well nourished; not ill appearing Eyes: PERRL, conjunctivae normal, anicteric sclerae ENMT: external ear and nose normal, oropharynx normal Neck: trachea midline, no thyromegaly Respiratory: normal respiratory effort, lungs clear to auscultation Cardiovascular: Rate/Rhythm: regular rate and regular rhythm Heart Sounds: no murmur Extremities: no edema Gastrointestinal (Abdomen): Inspection/Auscultation: normal bowel sounds; abdomen not distended Percussion/Palpation: abdomen soft; abdomen nontender Musculoskeletal: No acute arthritis in any joint Neurologic: PERRL, EOMI, accommodation nl, no face palsy, no dysarthria Psychiatric: A+Ox3, euthymic affect Lymphatic: no cervical or axillary lymphadenopathy Results & Data Results & Data ([facility]) Vital Signs (Past 12 Hours) Vital Signs Temp Pulse Pulse Resp BP Pulse Ox 12/14/20 08:00 63 12/14/20 07:31 36.8 C 75 16 163/92 H 96 12/14/20 04:00 70 Laboratory Results Short CBC 12/13/20 12/14/20 Range/Units 15:36 03:29 WBC 10.16 8.74 (4.8-10.8) K/uL Hgb 14.3 14.0 (12.0-16.0) g/dL Hct 40.7 40.4 (37-47) % Plt Count 276 287 (130-400) K/uL BMP 12/13/20 12/14/20 15:36 03:29 Sodium 133 L 139 Potassium 2.9 L 3.9 D Chloride 97 L 109 H Carbon Dioxide 29 26 BUN 12 8 Creatinine 0.54 L 0.48 L Glucose 92 105 H Calcium 8.8 8.0 L Cardiac Enzymes 12/13/20 12/14/20 Range/Units 21:20 03:29 Troponin I < 0.015 < 0.015 (0-0.045) ng/ml Liver Function 12/13/20 Range/Units 15:36 Total Bilirubin 0.5 (0.2-1) mg/dl AST 74 H (15-37) U/L ALT 59 (12-78) U/L Alkaline Phosphatase 101 (45-117) U/L Albumin 3.1 L (3.4-5.0) gm/dl Urine 12/13/20 Range/Units 18:18 Urine Color Yellow Urine Appearance Clear (Clear) Urine pH 7.5 (4.5-7.5) Ur Specific Conde 1.021 (1.000-1.030) Urine Protein Negative (Negative) Urine Glucose (UA) Negative (Negative) Medications Administered Current Inpatient Medications Acetaminophen (Acetaminophen 325 Mg Tab) 650 mg PO Q4H PRN PRN Reason: Pain or Fever Stop: 01/12/21 19:01 Aspirin (Aspirin 81 Mg Ectab) 81 mg PO [facility] Stop: 01/13/21 08:59 Last Admin: 12/14/20 08:25 Dose: 81 mg Documented by: Atorvastatin Calcium (Atorvastatin 40 Mg Tab) 40 mg PO [facility] Stop: 01/13/21 08:59 Last Admin: 12/14/20 08:25 Dose: 40 mg Documented by: Chlorthalidone (Chlorthalidone 25 Mg Tab) 25 mg PO [facility] Stop: 01/13/21 08:59 Last Admin: 12/14/20 08:25 Dose: 25 mg Documented by: Clopidogrel Bisulfate (Clopidogrel Bisulfate 75 Mg Tab) 75 mg PO [facility] Stop: 01/13/21 08:59 Last Admin: 12/14/20 08:25 Dose: 75 mg Documented by: Labetalol HCl (Labetalol Hcl Iv 5 Mg/Ml 20ml) 10 mg IV Q6H PRN PRN Reason: hypertension Stop: 01/12/21 19:01 Miscellaneous Information (Pharmacist Discharge Med Rec Consult) 1 ea N/A UD PRN PRN Reason: Consult Stop: 01/12/21 19:01 Pantoprazole Sodium ([facility] 40 Mg [facility]) [facility]: 01/13/21 06:29 Last Admin: 12/14/20 06:28 Dose: Not Given Documented by: (1) HTN (hypertension) Hypertension type: unspecified Qualified Code(s): I10 - Essential (primary) hypertension
[2020-12-14] MEDS ORDERED: STROKE PATIENT DISCHARGE STA (15:55)
--- NOTE | 2020-12-14 16:12 | Pharmacy Report ---
Pharmacist Stroke Counseling - Date of Service December 14, 2020 - Scope: Pharmacy has been consulted to provide medication discharge counseling for this patient admitted with transient ischemic attack as per the Pharmacist Discharge Counseling for Stroke Patients Protocol. - Medications on Discharge: Home Medications Medication Instructions Recorded Confirmed chlorthalidone 25 mg PO QAM 12/13/20 12/13/20 pantoprazole 40 mg PO DAILYBB 12/13/20 12/13/20 New Rx's Medication Instructions Recorded aspirin 81 mg PO QAM #30 tab 12/14/20 atorvastatin 40 mg PO QAM 30 Days #30 tab 12/14/20 clopidogrel 75 mg PO QAM #20 tab 12/14/20 potassium chloride 10 meq PO DAILY #30 cap 12/14/20 - Action: The above medications, specifically ones for stroke treatment/prophylaxis, have been reviewed in detail with the patient and/or patient customer counter representative(s) prior to discharge. This includes indication, common adverse reactions, drug interactions, and medication administration. Medication counseling has been employed using the teach-back method to ensure understanding. - Outcome: The patient and/or patient customer counter representative(s) have demonstrated understanding of the medications. Additional comments: * Spoke with patient on phone prior to discharge; she sounded pleasant and knowledgeable regarding her medications. She was only taking 2 Rx's prior to admission * Explained need to DAPT x 21 days due to TIA, then aspirin indefinitely thereafter. She is aware to monitor for bleeding/bruising. Aware to avoid NSAID's * Aware K+ was low at admission; possibly hypokalemia due to chlorthalidone. She will take KCl 10mEq and f/u with PCP. Recommend repeat labs. Potentially switching chlorthalidone to an alternative BP medication if she is chronically low? She will discuss with PCP * Aware to monitor for myalgia and discuss with her provider * Due to holiday weekend, recommend she call [facility] to see if they are open tomorrow. The most important medication not to miss is Plavix. * Patient appreciative of counseling received Thank you for allowing pharmacy to be involved in the care of this patient. Please call [phone] with any additional questions
--- NOTE | 2020-12-14 17:03 | Discharge Summary ---
Date of Service December 14, 2020 Admission HPI Per Admitting Provider Pt is 65 y/o F with PMH hypertension, GERD presented to ER with complaint of left face and left hand paresthesias started at 2 PM today. Patient states was sitting watching TV when she had sudden onset of left face numbness and tingling and left upper extremity tingling. She states she was able to fully move all of her extremities and did not feel weakness. Denies any headache, dizziness, vision changes. Reports her came in the house several minutes after symptom onset and did not notice any facial drooping or speech abnormality. Patient drove herself to the ER. Denies any head injury or trauma. Denies fever/chills, diaphoresis, N/V/D/C, syncope, neck pain, CP, SOB, orthopnea, palpitations, cough, sore throat, choking, otalgia, rhinorrhea, abdominal pain, lower extremity paresthesias, extremity weakness, extremity edema, rashes, urinary symptoms. In ER CT head without contrast with no acute intracranial findings, CTA head: No central vessel occlusion. No intracranial aneurysm. CTA neck: Severe short segment stenosis (80%) of the proximal right internal carotid artery due to atherosclerotic plaque ER physician spoke to telemetry stroke neurologist who recommended holding on TPA at this time, and starting aspirin, Plavix. In ER patient was given aspirin 324 mg p.o., Plavix 75 mg p.o. During ER course patient with decreased paresthesias of left face and left hand Admission Exam Per Admitting Provider Physical Exam: General: no distress, WDWN Head: normocephalic, atraumatic Eyes: PERRL, EOM's intact, conjunctiva non-injected, anicteric ENT: normal inspection external ears, nose, mucous membranes moist Neck: supple, trachea midline Lungs: clear, no respiratory distress, no wheezing/rhonchi/rales CV: RRR, no murmur, no pretibial edema Abd: normal BS, soft, non-tender Ext: no cyanosis, no calf tenderness Neuro: A&O x 3, normal affect, no nystagmus, facial sensation is intact and symmetric, The face is strong and symmetric, Hearing grossly intact, Soft palate elevates symmetrically, no dysarthria, Shoulder shrug intact, Tongue is midline, normal movement, no fasciculations, Muscle tone normal. Strength 5/5 throughout, finger to nose intact Skin: warm, dry Principal Diagnosis Transient ischemic attack, high-grade right carotid stenosis, hypertension Discharge Exam Constitutional well developed and well nourished; not ill appearing Eyes PERRL, conjunctivae normal, anicteric sclerae ENMT external ear and nose normal, oropharynx normal Neck trachea midline, no thyromegaly Respiratory normal respiratory effort, lungs clear to auscultation Cardiovascular Rate/Rhythm: regular rate and regular rhythm Heart Sounds: no murmur Extremities: no edema Gastrointestinal (Abdomen) Inspection/Auscultation: normal bowel sounds; abdomen not distended Percussion/Palpation: abdomen soft; abdomen nontender Neurologic PERRL, EOMI, accommodation nl, no face palsy, no dysarthria Psychiatric A+Ox3, euthymic affect Lymphatic no cervical or axillary lymphadenopathy Discharge Data Allergies Allergy/AdvReac Type Severity Reaction Status Date / Time pseudoephedrine AdvReac Unknown UNKNOWN Unverified 12/13/20 15:44 Consultations 12/13/20 16:07 ED Decision to Admit Stat 12/13/20 19:02 Consult Neurology Routine Ordered Studies 12/13/20 15:10 CT head/brain wo con Stat 12/13/20 15:16 CT angio head w con Stat CT angio neck with con Stat 12/14/20 19:02 MR brain wo/w con Routine Hospital Course (1) Left facial numbness: Presented with left facial numbness Resolved (2) Arm numbness left: Presented with left arm numbness Resolved (3) Carotid stenosis, right: Pt is 65 y/o F with PMH hypertension, GERD presented to ER with complaint of left face and left hand paresthesias started at 2 PM today. Denies ENGLE, dizziness, extremity weakness, CP, SOB In ER patient afebrile, BP: 188/111, P: 92, R: 18, 97% on room air. CT head without contrast: no acute intracranial findings, CTA head: No central vessel occlusion. No intracranial aneurysm. CTA neck: Severe short segment stenosis (80%) of the proximal right internal carotid artery due to atherosclerotic plaque MRI of brain-no acute intracranial abnormality Echo of the heart- normal LV chamber size with concentric LVH, EF 60 to 65%, no segmental wall motion abnormalities, grade 1 diastolic dysfunction, no significant valvular pathology and no interatrial shunt. Clinically much better today and without any neuro symptoms All of her presenting symptoms resolved Her blood pressure remains in the upper side as expected She has been ambulating in the room without any difficulties Appreciate neurology input and recommendation She will have an appointment with outpatient vascular surgery within 7 to 10 days She will have aspirin and Plavix for 21 days and then to continue with aspirin Will a follow-up appointment with primary care doctor and neurologist (4) HTN (hypertension): Hypertensive in ER with BP 188/100, 189/107 -Follow-up permissive hypertension, labetalol as needed -Continue chlorthalidone -Blood pressure remains stable (5) Hypokalemia: K: 2.9 -Replace and monitor-potassium is normalized (6) Hypomagnesemia: -Ma.7 -Replace and monitor (7) GERD (gastroesophageal reflux disease): -Continue PPI DVT Prophylaxis -SCDs Full Code as per discussion with pt Follows with Dr Stephens for routine care She will be discharged home this afternoon Total Time Total Time Spent Total Time Spent (In Minutes): 35 minutes Total Time Includes: Examination of the Patient, Discharge Planning, Medication Reconciliation and Communication With Other Providers Discharge Plan Discharge Items Patient Disposition: Home - Self-Care Reason For Visit: STROKE SYMPTOMS Discharge Diagnosis: Transient ischemic attack, high-grade right carotid stenosis, hypertension Condition on Discharge: Good Activity: Resume your previous activity Non-emergency contact: Primary Care Provider Call non-emergency contact if: you have any medication questions and your symptoms worsen Follow-up/Referrals: Evelio Stephens MD [Primary Care Provider] - (Will call you with an appointment with your primary care doctor, vascular surgery and neurologist) Diet: Heart Healthy and Low Sodium (2gm) Addtl Attending Provider Instructions: Take precautions to avoid fall Take your medications as advised You will continue with Plavix and aspirin for 21 days and after that aspirin alone to continue Please keep up with your appointments Pending Studies at Discharge: No Stand-Alone Forms: Medications to Prevent Stroke, [employer], Smoking Cessation Medications and DC Order Prescriptions: New clopidogrel 75 mg Tablet 75 mg PO QAM Qty: 20 RF: 0 atorvastatin 40 mg Tablet 40 mg PO QAM 30 Days Qty: 30 RF: 0 aspirin 81 mg Tablet,Delayed Release (Dr/Ec) 81 mg PO QAM Qty: 30 RF: 0 potassium chloride 10 mEq capsule, extended release 10 meq PO DAILY Qty: 30 RF: 0 Continued chlorthalidone 25 mg tablet 25 mg PO QAM RF: 0 pantoprazole 40 mg tablet,delayed release (DR/EC) 40 mg PO DAILYBB RF: 0 Discharge Orders: Discharge Order (Routine); Ordered 12/14/20 Ordered By: Willa Bolton Admission Data Admit Date/Time: 12/13/20 16:34 Attending Provider: Willa Bolton Admit Provider: Willa Bolton Primary Care Provider: Evelio Stephens Other Providers: Willa Bolton ; Wilma Umanzor Other Interventions: Discharge Summary Assessment (RN) Last Done: 12/14/20 16:03
[2020-12-15 07:25] LABS: Estimated Average Glucose 111 mg/dl; Hemoglobin A1C 5.5 % (4.5-5.6)
--- NOTE | 2020-12-15 09:56 | Electrocardiogram Report ---
Test Reason : Blood Pressure : / mmHG Vent. Rate : 065 BPM Atrial Rate : 065 BPM P-R Int : 150 ms QRS Dur : 090 ms QT Int : 454 ms P-R-T Axes : 067 062 081 degrees QTc Int : 472 ms Normal sinus rhythm T wave inversion consider anterior ischemia Prolonged QT Abnormal ECG When compared with ECG of 13-DEC-2020 15:31, ST no longer depressed in Anterior leads but T waves are more inverted in V1 and V2 Confirmed by Joseph Mast ([id number]) on 12/15/2020 9:55:32 AM Referred By: REFERRED SELF Confirmed By:Joseph Mast
== END 2020-12-14 16:55 | disposition home or self-care (01) ==
LOC: ED 15:08 → 2E 15:08

== ENCOUNTER 2020-12-23 06:52 | Inpatient (IN) ==
--- NOTE | 2020-12-17 15:10 | Anesthesiology Consultation ---
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 Preoperative COVID19 testing to be completed 12/19 at [facility]. Pt is vaccinated for COVID with Moderna vaccine x 2. Chart Review Chart Review: Acceptable Risk for Surgery and Patient NOT seen in Pre Admission Testing History Surgery Operation Date: 12/23/20 10:40 Proposed Procedures p Right Carotid Endarterectomy with Bovine Patch Angiogoplasty - Santos Hernandez MD, FACS Height/Weight Height: 5 ft 5 in Weight: 81.647 kg Allergies Allergy/AdvReac Type Severity Reaction Status Date / Time pseudoephedrine Allergy Severe IRREGULAR Verified 12/17/20 14:14 HEARTBEAT Medications Home Medications Medication Instructions Recorded Confirmed Last Taken chlorthalidone 25 mg PO QAM 12/13/20 12/17/20 12/13/20 pantoprazole 40 mg PO DAILY PRN 12/13/20 12/17/20 12/13/20 aspirin 81 mg PO QAM #30 tab 12/14/20 12/17/20 Unknown atorvastatin 40 mg PO QAM 30 Days #30 tab 12/14/20 12/17/20 Unknown clopidogrel 75 mg PO QAM #20 tab 12/14/20 12/17/20 Unknown potassium chloride 10 meq PO DAILY #30 cap 12/14/20 12/17/20 Unknown Past Medical History Medical History Carotid stenosis GERD (gastroesophageal reflux disease) HTN (hypertension) Hyperlipidemia Sciatica RT Transient ischemic attack (TIA) RECENT HOSPITALIZATION AT [facility] (NO CURRENT DEFICITS) Past Family History Family History Grandmother (Maternal) Colorectal cancer Hypertension Grandfather (Maternal) Cancer bladder CA Mother Cancer Father Family history of esophageal cancer Other No family history of adverse response to anesthesia Past Surgical History Surgical History H/O colonoscopy History of cardiac cath 8 YEARS AGO (NO STENTS) History of dilatation and curettage History of endometrial ablation History of esophagogastroduodenoscopy (EGD) History of laparoscopy History of tonsillectomy and adenoidectomy History of tooth extraction Social History Smoking Status: Never smoker Hx Alcohol Use: Yes Alcohol type: wine alcohol intake frequency: a few times a week Hx Substance Use: No substance use type: does not use Lab Results Anesthesia Preop Results Results Anesthesia Widget: WBC 8.74 K/uL (4.8-10.8) 12/14/20 Hgb 14.0 g/dL (12.0-16.0) 12/14/20 Hct 40.4 % (37-47) 12/14/20 Plt 287 K/uL (130-400) 12/14/20 Na 139 mmol/L (136-145) 12/14/20 K 3.9 mmol/L (3.5-5.1) 12/14/20 Cl 109 mmol/L (98-107) H 12/14/20 CO2 26 mmol/L (21-32) 12/14/20 BUN 8 mg/dl (7-18) 12/14/20 Creat 0.48 mg/dl (0.6-1.2) L 12/14/20 Glucose Level 105 mg/dl (70-99) H 12/14/20 POC Glucose 88 mg/dl (70-99) 12/13/20 PT 10.4 Seconds (9.0-12.0) 12/13/20 PTT 25.1 Seconds (21.0-31.0) 12/13/20 INR 1.0 (0.9-1.1) 12/13/20 TSH 4.300 uIu/ml (0.300-4.500) 12/13/20 HA1c 5.5 % (4.5-5.6) 12/14/20 Urine Color Yellow 12/13/20 Urine Appearance Clear (Clear) 12/13/20 Urine pH 7.5 (4.5-7.5) 12/13/20 Urine Specific [place] 1.021 (1.000-1.030) 12/13/20 Urine Protein Negative (Negative) 12/13/20 Urine Glucose (UA) Negative (Negative) 12/13/20 Urine Ketones Negative (Negative) 12/13/20 Urine Blood Negative (Negative) 12/13/20 Urine Nitrite Negative (Negative) 12/13/20 Urine Bilirubin Negative (Negative) 12/13/20 Urine Urobilinogen Negative (Negative) 12/13/20 Urine Leukocyte Esterase Negative (Negative) 12/13/20 COVID-19 PCR NEGATIVE (Negative) 12/13/20 Testing Electrocardiogram Date: 12/14/20 Normal sinus rhythm at 65bpm. T wave inversion consider anterior ischemia Prolonged QT. When compared with ECG of 13-DEC-2020 15:31, ST no longer depressed in Anterior leads but T waves are more inverted in V1 and V2. (EKG from hospitalization for recent TIA. Troponins performed were NEGATIVE. Subsequent echo WNL.) Chest X-Ray Date: 12/13/20 Findings: + NAD Echocardiogram Date: 12/14/20 EF: 60-65% LV Function: normal RWMA: + none Other Findings: + LVH (mild concentric) and + diastolic dysfunction (grade I) Valvular Disease: + no significant valvular disease No evidence for ASD. Other Testing Neck CTA 12/13/20 IMPRESSION: 1. Severe short segment stenosis (80%) of the proximal right internal carotid artery due to atherosclerotic plaque. 2. No additional stenoses within the major vessels of the neck.
[~2020-12-23 06:52] MED LIST: LR 15ML/HR IV SCH; SUGAMMADEX SODIUM 200 MG/2 ML VIAL IV ONE
[2020-12-23] MEDS ORDERED: MIDAZOLAM HCL 1 MG/ML 2ML VIAL ONE (07:37)
[2020-12-23] MEDS ORDERED: fentaNYL citrate 100 MCG/2 ML VIAL ONE ×3 (07:37→10:07)
--- NOTE | 2020-12-23 07:51 | History & Physical Bridge Note ---
Date of Service December 23, 2020 History & Physical Bridge Note I have examined the patient, reviewed the History & Physical and in the interval since the performance of the History & Physical I have noted the following changes of clinical significance: no changes noted at bedside all question answered pt marked
[2020-12-23] MEDS ORDERED: HEPARIN (PORCINE) 1000 UNIT/ML 10 ML (CATH LAB USE ONLY) ONE (08:09)
[2020-12-23] MEDS ORDERED: LIDOCAINE/EPINEPHRINE 1% 20 ML VIAL ONE (08:09)
[2020-12-23] MEDS ORDERED: LABETALOL HCL IV 5 MG/ML 20ML IV PRN (08:11)
[2020-12-23] MEDS ORDERED: ONDANSETRON INJ 2 MG/ML 2 ML VIAL IV PRN ×2 (08:11→13:03)
[2020-12-23] MEDS ORDERED: PROMETHAZINE HCL 12.5 MG in SODIUM CHLORIDE 0.9% 50 ML IV PRN (08:11)
[2020-12-23] MEDS ORDERED: fentaNYL citrate 100 MCG/2 ML VIAL IV PRN (08:11)
[2020-12-23] MEDS ORDERED: ATROPINE SULFATE 0.1 MG/ML 10ML SYR IV PRN (08:11)
[2020-12-23] MEDS ORDERED: ceFAZolin 2000MG 2,000 MG/15 ML SYR IV ONE (08:56)
[2020-12-23] MEDS ORDERED: PROPOFOL IV EMULSION 10 MG/ML 20 ML VIAL IV ONE (10:02)
[2020-12-23] MEDS ORDERED: PHENYLEPHRINE 100MCG/ML 5ML SYR ONE (10:02)
[2020-12-23] MEDS ORDERED: LIDOCAINE 2% 2 ML VIAL/AMP(20MG/ML) INFIL ONE (10:02)
[2020-12-23] MEDS ORDERED: GLYCOPYRROLATE 0.2 MG/ML VIAL ONE (10:02)
[2020-12-23] MEDS ORDERED: LARYING-O-JET KIT (LTA) ONE (10:02)
[2020-12-23] MEDS ORDERED: DEXAMETHASONE SOD INJ 4 MG/ML VIAL ONE (10:02)
[2020-12-23] MEDS ORDERED: NITROGLYCERIN 5 MG/ML 10 ML VIAL ONE (10:02)
[2020-12-23] MEDS ORDERED: HEPARIN SOD (PORCINE) 1000 UNIT/ML ONE (10:02)
[2020-12-23] MEDS ORDERED: ePHEDrine sulfate 50 MG/ML SYR ONE (10:02)
[2020-12-23] MEDS ORDERED: ONDANSETRON INJ 2 MG/ML 2 ML VIAL ONE (10:02)
[2020-12-23] MEDS ORDERED: PHENYLEPHRINE HCL 10 MG/ML VIAL ONE (10:02)
[2020-12-23] MEDS ORDERED: PROTAMINE SULFATE 10 MG/ML 5 ML VIAL ONE (10:34)
[2020-12-23] MEDS ORDERED: SURGICEL ABSORB HEMOSTAT 2IN X 14IN TOP ONE (10:45)
--- NOTE | 2020-12-23 10:51 | Post Operative Brief Note ---
PG Immediate Post Op with CF Date of Surgery December 23, 2020 Pre & Post Diagnosis Operation Date: 12/23/20 08:45 Pre-Op Diagnosis: Carotid Stenosis Post-Op Diagnosis: Carotid Stenosis I identified the patient and participated in the time-out.: Yes Procedure Operation Date: 12/23/20 08:45 Actual Procedures p Right Carotid Endarterectomy with Bovine Patch Angiogoplasty(Right) - Santos Hernandez MD, FACS Surgeon Santos Hernandez MD, FACS History Card Clerk b lyndsay silva Estimated Blood Loss 300 Findings Consistent with Post-Op Diagnosis Specimens Specimen Description: A: Carotid Plaque
--- NOTE | 2020-12-23 11:31 | Operative Report ---
PG Post Operative Report Pre & Post Diagnosis Operation Date: 12/23/20 08:45 Pre-Op Diagnosis: Carotid Stenosis Post-Op Diagnosis: Carotid Stenosis I identified the patient and participated in the time-out.: Yes Procedure Operation Date: 12/23/20 08:45 Actual Procedures p Right Carotid Endarterectomy with Bovine Patch Angiogoplasty(Right) - Santos Hernandez MD, FACS The patient was brought into the operating theater general trach anesthesia systemic antibiotics given right neck and chest with prepped byline solution and scrub and properly draped a timeout was had patient was identified 0.5% Marcaine with epi was used to infiltrate anterior to the sternocleido's muscle incision was made approximately 3-1/2 inches long deepened to subcutaneous tissue retraction of the skin edges were identified and external jugular vein quite prominent which we divided doubly ligated with 2-0 silk we can to use her dissection all the way down to the neurovascular bundle using a Festus retractor at this point we were able to then identify some tissue over on top of the carotid with some slight venous plexus which we divided ligated doubly with 4-0 silk once we are able to get around the the common carotid we elevated over vessel loop the vessel at the there the vessel was very compliant there was no evidence of atherosclerosis that we could palpate therefore we continued I sectioned distally first in the external carotids we identified the superior thyroid which we plate locked with 2-0 silk then the internal carotid we divided adventitial area and continued more cephalad we were able then to identify the hypoglossal nerve and slight traction however vascular to get a lateral airway the patient has some prominent lymph nodes that we were able just to retracted out of the way. At this point once we were able to free up the internal carotid to an area that appeared free of any disease the takeoff appear to be a little inflammatory adventitial layer to which we freed up the suspensory ligament was divided there was no evidence with any bradycardia. This point systemic and heparinization was given with 8500 units of heparin in the meantime we proceeded with bovine patch on the field and cut it appropriately and after 5 minutes we clamped the internal carotids with bulldog clamp then the external and the common and arteriotomy in the common carotid was made extending towards the internal or with the area was significantly stenotic in fact once we entered the internal carotid there was some the contents were almost yellowish toothpaste and absence of clearly completely or nearly completely occluding the internal carotid. We then extended all the way up beyond this area where the adventitia and the intima appeared to be free of any disease. We removed the bulldog clamp and an excellent pulsatile backbleeding from the internal carotid. We then it were able to start the plane of dissection on the endarterectomy and a common carotid getting and exposing the common circular fibers continued onto the external carotid when he did not eversion endarterectomy and then continued up to the internal carotid with removed plaque and also this stent toothpaste cheerio. We flushed the common carotid and the external at this point we made sure that the intima in the internal carotid area was quite adherent we extended it up more we felt at this point we did not need to divide the digastric muscle to get better exposure we thought we had some freed of any significant disease bovine patch was then brought operative field along lady with 6-0 Prolene circumferentially prior to tying the patch we placed a bakes dilator toward and beyond the internal carotid area once we took the bulldog clamp and an excellent backbleeding. We control the backbleeding with a DeBakey forceps then tied down the patch after we had suctioned it out and flush the common and external carotid there was some oozing in a few areas on the patch which we controlled 6 Prolene but the area that gave us the most fastidious work was the the toe of the graft where the internal carotid was very thin and we had a bleeder there that we controlled with 7-0 Prolene but to expose the the exposure we then divided the digastric at this point so we can go up higher and get better exposure to her area of interest once we had freed this up the area appeared to be quite hemostatic we had reversed the meantime with 40 mg of protamine. Once we had reestablished flow we can feel there was no thrill in the toe the pad patch. The area was irrigated and checked hemostatically and appear quite satisfactory with drain the area with 1/4 inch Elizabet drain through stab wound between the 2 heads of sternocleidal plane along the carotid we controlled and closed the carotid multiple layers using 2-0 Vicryl continuous fashion then subcuticular 4-0 Monocryl Steri-Strips applied at the end of the procedure the patient was the awaken and move all extremities. Estimated blood loss approximately 350 cc addendum Cristobal silva was present throughout the procedure and helped the retraction exposure and wound closure addendum Called Jeremy and [phone] no answer and left a voicemail generic in nature Surgeon Santos Hernandez MD, FACS Physical Therapy Attendant remy silva Estimated Blood Loss 300 Findings Consistent with Post-Op Diagnosis Specimens carotid plaque Description of Procedure merda I attest to the content of the Intraoperative Record and any orders documented therein. Any exceptions are noted below.
[2020-12-23] MEDS ORDERED: oxyCODONE/ACETAMINOPHEN 5mg/325mg TAB PO PRN (13:03)
[2020-12-23] MEDS ORDERED: PANTOprazole 40 MG TAB PO PRN (13:03)
[2020-12-23] MEDS ORDERED: ACETAMINOPHEN 325 MG TAB PO PRN (13:03)
[2020-12-23] MEDS ORDERED: NITROGLYCERIN/D5W 100MCG/ML 250 ML IV PRN (13:03)
--- NOTE | 2020-12-23 13:20 | Anesthesiology Progress Note ---
Date of Service December 23, 2020 Anesthesia Post Procedure Vital Signs Vital Signs: Temp Pulse Pulse Resp BP BP BP 12/23/20 12:20 62 14 142/60 H 113/68 12/23/20 12:05 36.0 C L 64 14 148/62 H 116/66 12/23/20 11:55 65 14 152/65 H 118/71 12/23/20 11:45 64 14 147/64 H 115/66 12/23/20 11:35 62 14 155/67 H 121/70 12/23/20 11:25 66 14 165/67 H 123/70 12/23/20 11:20 63 14 158/64 H 116/70 12/23/20 11:19 36.0 C L 65 14 114/69 12/23/20 07:32 36.5 C 75 18 141/80 H Pulse Ox 12/23/20 12:20 98 12/23/20 12:05 99 12/23/20 11:55 98 12/23/20 11:45 94 12/23/20 11:35 100 12/23/20 11:25 98 12/23/20 11:20 98 12/23/20 11:19 97 12/23/20 07:32 96 Transfer of Care Handoff Completed per policy Notes Mental Status: alert / awake / arousable Patient Amnestic to Procedure: Yes Nausea / Vomiting: adequately controlled Pain: adequately controlled Airway Patency, RR, SpO2: stable & adequate BP & HR: stable & adequate Hydration State: stable & adequate Anesthetic Complications: no major complications apparent
[2020-12-23] MEDS: MoRPHine SULFATE 4 MG/ML 1 ML CARP\\VIAL IV PRN ×3 (13:21→22:16)
[2020-12-23] MEDS: LACTATED RINGER'S 1,000 ML IV SCH ×2 (13:27→23:44)
--- NOTE | 2020-12-23 14:53 | Critical Care Consultation ---
Date of Consultation December 23, 2020 Assessment & Plan (1) Carotid stenosis, right: Goal blood pressure between 120 and 160 systolic -Arterial line in place (2) Hypertension: (3) Post-operative state: History of Present Illness Reason for Consultation: [place] is post right carotid endarterectomy Requesting Physician: Santos Hernandez MD, FACS Attending Physician: Santos Hernandez MD, FACS History of Present Illness Patient is a 65-year-old female with a significant past medical history for hypertension hypercholesterolemia and a right carotid stenosis she underwent right endarterectomy today Allergies Allergy/AdvReac Type Severity Reaction Status Date / Time pseudoephedrine Allergy Severe IRREGULAR Verified 12/23/20 07:25 HEARTBEAT Home Medications Medication Instructions Recorded Confirmed Type chlorthalidone 25 mg PO QAM 12/13/20 12/23/20 History pantoprazole 40 mg PO DAILY PRN 12/13/20 12/23/20 History aspirin 81 mg PO QAM #30 tab 12/14/20 12/23/20 Rx atorvastatin 40 mg PO QAM 30 Days #30 tab 12/14/20 12/23/20 Rx clopidogrel 75 mg PO QAM #20 tab 12/14/20 12/23/20 Rx potassium chloride 10 meq PO DAILY #30 cap 12/14/20 12/23/20 Rx Patient History Medical History Carotid stenosis GERD (gastroesophageal reflux disease) HTN (hypertension) Hyperlipidemia Sciatica RT Transient ischemic attack (TIA) RECENT HOSPITALIZATION AT [facility] (NO CURRENT DEFICITS) -" 2 saturdays ago"- no deficits Surgical History H/O colonoscopy History of cardiac cath 8 YEARS AGO (NO STENTS) History of dilatation and curettage History of endometrial ablation History of esophagogastroduodenoscopy (EGD) History of laparoscopy History of tonsillectomy and adenoidectomy History of tooth extraction Family History Grandmother (Maternal) Colorectal cancer Hypertension Grandfather (Maternal) Cancer bladder CA Mother Cancer Father Family history of esophageal cancer Other No family history of adverse response to anesthesia Social History Smoking Status: Never smoker Second Hand Exposure: Yes ( A CHILD); Hx Alcohol Use: Yes (1-2 glasses wine 3 x a week) Alcohol type: wine Hx Substance Use: No Preferred Language: Spanish Communication Ability: Effective [employer] Attendant Required: No Beliefs That Will Affect Care: None marital status: Current Living Situation: Spouse 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 nontoxic. Skin: Warm, dry, Head: Atraumatic Ears, nose, mouth and throat: airway patent, no expanding hematoma, dressing on right neck is clean dry and intact Cardiovascular: Normal peripheral perfusion Respiratory: no respiratory distress Gastrointestinal: Non distended Musculoskeletal: No deformity Results & Data Results & Data ([facility]) Vital Signs (Past 12 Hours) Vital Signs Temp Pulse Pulse Pulse Resp BP BP 12/23/20 13:42 68 12/23/20 13:31 68 12/23/20 13:29 71 119/72 12/23/20 13:15 70 12/23/20 13:00 66 12/23/20 12:58 70 128/72 12/23/20 12:47 66 12/23/20 12:43 66 126/67 12/23/20 12:20 62 14 12/23/20 12:05 36.0 C L 64 14 12/23/20 11:55 65 14 12/23/20 11:45 64 14 12/23/20 11:35 62 14 12/23/20 11:25 66 14 12/23/20 11:20 63 14 12/23/20 11:19 36.0 C L 65 14 12/23/20 07:32 36.5 C 75 18 141/80 H BP BP Pulse Ox 12/23/20 13:42 12/23/20 13:31 96 12/23/20 13:29 95 12/23/20 13:15 96 12/23/20 13:00 95 12/23/20 12:58 95 12/23/20 12:47 95 12/23/20 12:43 93 12/23/20 12:20 142/60 H 113/68 98 12/23/20 12:05 148/62 H 116/66 99 12/23/20 11:55 152/65 H 118/71 98 12/23/20 11:45 147/64 H 115/66 94 12/23/20 11:35 155/67 H 121/70 100 12/23/20 11:25 165/67 H 123/70 98 12/23/20 11:20 158/64 H 116/70 98 12/23/20 11:19 114/69 97 12/23/20 07:32 96 Laboratory Results 12/23/20 12/23/20 12/23/20 Range/Units Unknown Unknown 07:09 COVID-19 Eval Order Covid19 IDNow atMDEC SARS-CoV-2, RNA, NAAT NEGATIVE (NEGATIVE) Blood Type O Positive Antibody Screen NEGATIVE Coding Level of Care Code 33693 Inpt Consult Level 4 Diagnoses Carotid stenosis, right I65.21 Hypertension I10 Hypertension type: essential hypertension Post-operative state Z98.890 (1) Hypertension Hypertension type: essential hypertension Qualified Code(s): I10 - Essential (primary) hypertension
[2020-12-23] MEDS ORDERED: ATROPINE SULFATE 0.1 MG/ML 10ML SYR IV ONE (19:10)
--- NOTE | 2020-12-23 19:24 | Communication Note ---
Date of Service: December 23, 2020 Patient had what appears to be a symptomatic episode of bradycardia which she likely vagal of during a dressing change at her surgical site on the right carot id. The nurse states that a similar episode happened earlier and the patient was able to recover in less than 1 minute. At that time patient's blood pressure decreased into the 70s systolic and her nitro drip was put on hold. Her heart rate was 38-45 during this time, and she was nauseated and dizzy. Ordered an EKG and atropine to be given, however the patient recovered before she received medications. Her heart rate was 61 on the EKG and she is in normal sinus rhythm with T wave abnormality in anterior leads which was demonstrated on her prior EKGs. We will continue to hold nitro drip for now as this may be contributing to her vagal response and currently her blood pressure is within goal range without it. Will obtain CBC, BMP, and troponin as well. Surgery has been updated as well. Continue to monitor in ICU. Coding Level of Care Code None
[2020-12-23 19:38] LABS: Hematocrit (blood only) 37.6 % (37-47); Hemoglobin 12.9 g/dL (12.0-16.0); Mean Corpuscular Hgb Conc 34.3 g/dL (32-36); Mean Corpuscular Volume 96.2 fL (80-100); Mean Platelet Volume 11.9 fL (7.4-10.4); Platelet Count 289 K/uL (130-400); RDW Coefficient of Variation 12.7 % (11.5-14.5); RDW Standard Deviation 44.4 fL (36.4-46.3); Red Blood Count 3.91 M/uL (4.2-5.4); White Blood Count 13.29 K/uL (4.8-10.8)
[2020-12-23 20:05] LABS: BUN Creatinine Ratio 13.8 (10-20); Blood Urea Nitrogen 8 mg/dl (7-18); Calcium 8.5 mg/dl (8.5-10.1); Carbon Dioxide 28 mmol/L (21-32); Chloride 99 mmol/L (98-107); Creatinine Clr Calc Pharmacy 103.9 ml/min; Est GFR (African American) 112.4 ml/min; Glucose 197 mg/dl (70-99); Phosphorus 3.4 mg/dl (2.5-4.9); Sodium 135 mmol/L (136-145); Troponin I < 0.015 ng/ml (0-0.045)
[2020-12-23 20:56] LABS: Potassium 2.9 mmol/L (3.5-5.1)
[2020-12-23 20:57] LABS: Magnesium 1.8 mg/dl (1.8-2.4)
[2020-12-23] MEDS ORDERED: POTASSIUM CHLORIDE CRTAB 20 MEQ TABCR PO STA (21:01)
[2020-12-23 21:12] LABS: Partial Thromboplastin Ratio 0.8; Partial Thromboplastin Time 22.1 Seconds (21.0-31.0); Prothrombin Time 10.6 Seconds (9.0-12.0)
[2020-12-23] MEDS: MAGNESIUM SULFATE / D5W 1 GM/100 ML BAG IV SCH ×2 (21:49→23:12)
[2020-12-23] MEDS: POTASSIUM CHLORIDE / WTR 10 MEQ/100 ML PLCT IV SCH ×2 (21:49→23:44)
[2020-12-23] MEDS ORDERED: POTASSIUM CHLORIDE 20 MEQ/15 ML UDC PO STA (21:51)
[2020-12-24] MEDS: POTASSIUM CHLORIDE / WTR 10 MEQ/100 ML PLCT IV SCH ×4 (01:27→09:08)
[2020-12-24] MEDS: MoRPHine SULFATE 4 MG/ML 1 ML CARP\\VIAL IV PRN ×5 (05:23→21:04)
[2020-12-24 05:35] LABS: Basophils # (auto) 0.01 K/uL (0-0.2); Basophils % (auto) 0.1 %; Eosinophils # (auto) 0.01 K/uL (0-0.5); Eosinophils % (auto) 0.1 %; Hematocrit (blood only) 33.7 % (37-47); Hemoglobin 11.5 g/dL (12.0-16.0); Immature Granulocytes # (auto) 0.04 K/uL (0.00-0.02); Immature Granulocytes % (auto) 0.3 %; Lymphocytes # (auto) 1.51 K/uL (1.2-3.4); Lymphocytes % (auto) 9.9 %; Mean Corpuscular Hemoglobin 32.9 pg (25-34); Mean Corpuscular Hgb Conc 34.1 g/dL (32-36); Mean Corpuscular Volume 96.3 fL (80-100); Mean Platelet Volume 11.9 fL (7.4-10.4); Monocytes # (auto) 0.99 K/uL (0.11-0.59); Monocytes % (auto) 6.5 %; Neutrophils # (auto) 12.68 K/uL (1.4-6.5); Neutrophils % (auto) 83.1 %; Platelet Count 275 K/uL (130-400); RDW Coefficient of Variation 12.6 % (11.5-14.5); RDW Standard Deviation 44.3 fL (36.4-46.3); White Blood Count 15.24 K/uL (4.8-10.8)
[2020-12-24 06:12] LABS: BUN Creatinine Ratio 12.1 (10-20); Calcium 7.7 mg/dl (8.5-10.1); Creatinine Clr Calc Pharmacy 129.8 ml/min; Est GFR (Non-African American) 104.4 ml/min; Potassium 3.7 mmol/L (3.5-5.1)
[2020-12-24] MEDS: CHLORTHALIDONE 25 MG TAB PO SCH (07:43)
[2020-12-24] MEDS: ATORVASTATIN 40 MG TAB PO SCH (07:43)
--- NOTE | 2020-12-24 07:50 | Surgery Progress Note ---
Date of Service December 24, 2020 Assessment & Plan (1) Carotid stenosis, right: POD 1 right CEA seen with Dr. Hernandez hold ASA pressure dressing applied to drain wound will recheck later this morning Admission and Anticipated Discharge Date Admission Date: December 23, 2020 Supervising Physician Co-Signing Physician Notes Overall she is doing well neurologically she is intact needed nitro last night and she became some vasovagal it was discontinued the nitro has been off her blood pressure is noted hemoglobin this morning noted The neck incision Steri-Strips intact there is no swelling but she has had a moderate amount of drainage with some clots at the drain site I watched it for a while it seems to be right at the drain site a pressure dressing was applied we will watch it closely suspect this will stop she had been on Plavix and aspirin and this was discontinued postsurgical Will ask her not to have any breakfast for the unlikelihood that we need to reexplore the area All questions were answered we will keep her in ICU until her bleeding has subsided Her hemoglobin is noted this morning Subjective off nitro, some bleeding from addi, no c/o Physical Exam Neck: some ecchymosis of incision, dark bloody drainage around addi drain, neuro intact Results & Data ([facility]) Vital Signs (Past 12 Hours) Vital Signs Temp Pulse Resp BP Pulse Ox 12/24/20 06:30 67 13 97 12/24/20 06:28 66 14 126/65 98 12/24/20 05:28 75 13 118/72 97 12/24/20 04:30 71 13 96 12/24/20 04:28 36.6 C 72 13 121/74 95 12/24/20 04:00 75 19 97 12/24/20 03:30 73 14 95 12/24/20 03:28 70 14 120/68 97 12/24/20 03:00 71 13 97 12/24/20 02:30 70 14 97 12/24/20 02:28 72 12 109/65 97 12/24/20 02:00 72 19 96 12/24/20 01:28 79 16 113/72 94 12/24/20 00:30 74 14 96 12/24/20 00:28 75 16 128/66 96 12/24/20 00:00 74 13 92 12/23/20 23:30 78 14 91 12/23/20 23:28 76 14 101/68 90 12/23/20 23:00 74 14 91 12/23/20 22:29 36.6 C 77 13 133/91 12/23/20 22:00 73 17 92 12/23/20 21:30 70 17 91 12/23/20 21:00 72 18 91 12/23/20 20:30 77 15 97 12/23/20 20:28 76 14 141/84 H 96 12/23/20 20:00 72 12 91 12/23/20 19:58 36.6 C 69 12 134/69 92 PG Care Time/CCT Total # of Minutes Spent Total Time Spent with Patient: Total time spent is greater than 50% in coordination of care (as documented) at patient's floor/unit and/or counseling patient: Coding Level of Care Code None Diagnoses Carotid stenosis, right I65.21
--- NOTE | 2020-12-24 08:13 | Critical Care Progress Note ---
Date of Service December 24, 2020 Assessment & Plan (1) Post-operative state: PLAN: Neuro: History TIA -Subsequent discovery of right carotid stenosis CV: Hypertension -Home antihypertensives -Borderline high of ideal goal range and with oozing would consider at risk for hematoma and continued close observation ICU Fluids/Renal: Maintenance fluids GI/Nutrition: NPO in case of possible re-exploration if needed Heme: Postoperative anemia DVT prophylaxis: SCDs Endocrine: ICU hyperglycemia protocol Vascular access: Peripheral IV and arterial line Code Status: Full code Disposition: ICU (2) Hypertension: (3) Carotid stenosis, right: Admission and Anticipated Discharge Date Admission Date: December 23, 2020 Supervising Physician Co-Signing Physician Notes Patient was discussed on multidisciplinary rounds Subjective Oozing at surgical site, blood pressure mildly elevated, mild pain no voice change Physical Exam Physical Exam: General: Alert. nontoxic. Skin: Warm, dry, Head: Atraumatic Ears, nose, mouth and throat: airway patent, no expanding hematoma Cardiovascular: Normal peripheral perfusion Respiratory: no respiratory distress Gastrointestinal: Non distended Musculoskeletal: No deformity Results & Data Results & Data ([facility]) Vital Signs (Past 12 Hours) Vital Signs Temp Pulse Resp BP Pulse Ox 12/24/20 06:30 67 13 97 12/24/20 06:28 66 14 126/65 98 12/24/20 05:28 75 13 118/72 97 12/24/20 04:30 71 13 96 12/24/20 04:28 36.6 C 72 13 121/74 95 12/24/20 04:00 75 19 97 12/24/20 03:30 73 14 95 12/24/20 03:28 70 14 120/68 97 12/24/20 03:00 71 13 97 12/24/20 02:30 70 14 97 12/24/20 02:28 72 12 109/65 97 12/24/20 02:00 72 19 96 12/24/20 01:28 79 16 113/72 94 12/24/20 00:30 74 14 96 12/24/20 00:28 75 16 128/66 96 12/24/20 00:00 74 13 92 12/23/20 23:30 78 14 91 12/23/20 23:28 76 14 101/68 90 12/23/20 23:00 74 14 91 12/23/20 22:29 36.6 C 77 13 133/91 12/23/20 22:00 73 17 92 12/23/20 21:30 70 17 91 12/23/20 21:00 72 18 91 12/23/20 20:30 77 15 97 12/23/20 20:28 76 14 141/84 H 96 Laboratory Results 12/24/20 12/24/20 12/23/20 Range/Units 05:16 05:16 Unknown WBC 15.24 H (4.8-10.8) K/uL RBC 3.50 L (4.2-5.4) M/uL Hgb 11.5 L (12.0-16.0) g/dL Hct 33.7 L (37-47) % MCV 96.3 (80-100) fL MCH 32.9 (25-34) pg MCHC 34.1 (32-36) g/dL RDW Std Deviation 44.3 (36.4-46.3) fL RDW Coeff of [place] 12.6 (11.5-14.5) % Plt Count 275 (130-400) K/uL MPV 11.9 H (7.4-10.4) fL Immature Gran % (Auto) 0.3 % Neut % (Auto) 83.1 % Lymph % (Auto) 9.9 % [place] % (Auto) 6.5 % Eos % (Auto) 0.1 % Baso % (Auto) 0.1 % Neut # (Auto) 12.68 H (1.4-6.5) K/uL Lymph # (Auto) 1.51 (1.2-3.4) K/uL [place] # (Auto) 0.99 H (0.11-0.59) K/uL Eos # (Auto) 0.01 (0-0.5) K/uL Baso # (Auto) 0.01 (0-0.2) K/uL Immature Gran # (Auto) 0.04 H (0.00-0.02) K/uL PT (9.0-12.0) Seconds INR (0.9-1.1) APTT (21.0-31.0) Seconds PTT Ratio Sodium 136 (136-145) mmol/L Potassium 3.7 D (3.5-5.1) mmol/L Chloride 101 (98-107) mmol/L Carbon Dioxide 30 (21-32) mmol/L Anion Gap 5.0 (3-11) BUN 6 L (7-18) mg/dl Creatinine 0.48 L (0.6-1.2) mg/dl Est Cr Clr Drug Dosing 129.8 ml/min Est GFR ( Amer) 121.0 ml/min Est GFR (Non-Af Amer) 104.4 ml/min BUN/Creatinine Ratio 12.1 (10-20) Glucose 152 H (70-99) mg/dl POC Glucose (70-99) mg/dl Calcium 7.7 L (8.5-10.1) mg/dl Phosphorus (2.5-4.9) mg/dl Magnesium (1.8-2.4) mg/dl Troponin I (0-0.045) ng/ml Nasal Screen MRSA (PCR) Negative (Negative) Blood Type Antibody Screen 12/23/20 12/23/20 12/23/20 Range/Units 20:26 19:27 19:27 WBC (4.8-10.8) K/uL RBC (4.2-5.4) M/uL Hgb (12.0-16.0) g/dL Hct (37-47) % MCV (80-100) fL MCH (25-34) pg MCHC (32-36) g/dL RDW Std Deviation (36.4-46.3) fL RDW Coeff of Lawrence (11.5-14.5) % Plt Count (130-400) K/uL MPV (7.4-10.4) fL Immature Gran % (Auto) % Neut % (Auto) % Lymph % (Auto) % [place] % (Auto) % Eos % (Auto) % Baso % (Auto) % Neut # (Auto) (1.4-6.5) K/uL Lymph # (Auto) (1.2-3.4) K/uL [place] # (Auto) (0.11-0.59) K/uL Eos # (Auto) (0-0.5) K/uL Baso # (Auto) (0-0.2) K/uL Immature Gran # (Auto) (0.00-0.02) K/uL PT 10.6 (9.0-12.0) Seconds INR 1.0 (0.9-1.1) APTT 22.1 (21.0-31.0) Seconds PTT Ratio 0.8 Sodium 135 L (136-145) mmol/L Potassium 2.9 L (3.5-5.1) mmol/L Chloride 99 (98-107) mmol/L Carbon Dioxide 28 (21-32) mmol/L Anion Gap 8.0 (3-11) BUN 8 (7-18) mg/dl Creatinine 0.60 (0.6-1.2) mg/dl Est Cr Clr Drug Dosing 103.9 ml/min Est GFR ( Amer) 112.4 ml/min Est GFR (Non-Af Amer) 97.0 ml/min BUN/Creatinine Ratio 13.8 (10-20) Glucose 197 H (70-99) mg/dl POC Glucose (70-99) mg/dl Calcium 8.5 (8.5-10.1) mg/dl Phosphorus 3.4 (2.5-4.9) mg/dl Magnesium 1.8 (1.8-2.4) mg/dl Troponin I < 0.015 (0-0.045) ng/ml Nasal Screen MRSA (PCR) (Negative) Blood Type Antibody Screen 12/23/20 12/23/20 12/23/20 Range/Units 19:27 18:11 07:09 WBC 13.29 H (4.8-10.8) K/uL RBC 3.91 L (4.2-5.4) M/uL Hgb 12.9 (12.0-16.0) g/dL Hct 37.6 (37-47) % MCV 96.2 (80-100) fL MCH 33.0 (25-34) pg MCHC 34.3 (32-36) g/dL RDW Std Deviation 44.4 (36.4-46.3) fL RDW Coeff of [place] 12.7 (11.5-14.5) % Plt Count 289 (130-400) K/uL MPV 11.9 H (7.4-10.4) fL Immature Gran % (Auto) % Neut % (Auto) % Lymph % (Auto) % [place] % (Auto) % Eos % (Auto) % Baso % (Auto) % Neut # (Auto) (1.4-6.5) K/uL Lymph # (Auto) (1.2-3.4) K/uL [place] # (Auto) (0.11-0.59) K/uL Eos # (Auto) (0-0.5) K/uL Baso # (Auto) (0-0.2) K/uL Immature Gran # (Auto) (0.00-0.02) K/uL PT (9.0-12.0) Seconds INR (0.9-1.1) APTT (21.0-31.0) Seconds PTT Ratio Sodium (136-145) mmol/L Potassium (3.5-5.1) mmol/L Chloride (98-107) mmol/L Carbon Dioxide (21-32) mmol/L Anion Gap (3-11) BUN (7-18) mg/dl Creatinine (0.6-1.2) mg/dl Est Cr Clr Drug Dosing ml/min Est GFR ( Amer) ml/min Est GFR (Non-Af Amer) ml/min BUN/Creatinine Ratio (10-20) Glucose (70-99) mg/dl POC Glucose 217 H (70-99) mg/dl Calcium (8.5-10.1) mg/dl Phosphorus (2.5-4.9) mg/dl Magnesium (1.8-2.4) mg/dl Troponin I (0-0.045) ng/ml Nasal Screen MRSA (PCR) (Negative) Blood Type O Positive Antibody Screen NEGATIVE Coding Level of Care Code 40406 Subseq Hosp Care Lvl 3 Diagnoses Post-operative state Z98.890 Hypertension I10 Hypertension type: essential hypertension Carotid stenosis, right I65.21 (1) Hypertension Hypertension type: essential hypertension Qualified Code(s): I10 - Essential (primary) hypertension
[2020-12-24] MEDS ORDERED: ASPIRIN 81 MG ECTAB PO SCH (09:00)
[2020-12-24] MEDS ORDERED: CLOPIDOGREL BISULFATE 75 MG TAB PO SCH (09:00)
--- NOTE | 2020-12-24 12:00 | History & Physical Bridge Note ---
Date of Service December 24, 2020 History & Physical Bridge Note I have examined the patient, reviewed the History & Physical and in the interval since the performance of the History & Physical I have noted the following changes of clinical significance: no changes noted Since seen this morning dominant continues to have moderate amount of clotted blood coming out of the [place] neck incision is pretty much unchanged there is no fullness but given the timeframe I think at this point we need to reexplore her for postoperative bleeding and this was discussed with the patient we will proceed accordingly We will discuss with anesthesia regarding the timing since she had a very minimal apple juice and pills taken at about 6:00 this morning
[2020-12-24] MEDS ORDERED: fentaNYL citrate 100 MCG/2 ML VIAL ONE ×2 (12:33→13:21)
[2020-12-24] MEDS ORDERED: PROPOFOL IV EMULSION 10 MG/ML 20 ML VIAL IV ONE (12:33)
[2020-12-24] MEDS ORDERED: MIDAZOLAM HCL 1 MG/ML 2ML VIAL ONE (12:33)
[2020-12-24] MEDS ORDERED: ROCURONIUM BROMIDE 10 MG/ML 5 ML VIAL IV ONE (12:33)
[2020-12-24] MEDS ORDERED: SUCCINYLCHOLINE CHLORIDE 20 MG/ML 10 ML VIAL IV ONE (12:33)
[2020-12-24] MEDS ORDERED: LIDOCAINE 2% 2 ML VIAL/AMP(20MG/ML) INFIL ONE (12:33)
--- NOTE | 2020-12-24 12:34 | Anesthesiology Consultation ---
Date of Service December 24, 2020 Assessment & Plan (1) Encounter for pre-operative examination: Chart Review Chart Review: Acceptable Risk for Surgery and Patient NOT seen in Pre Admission Testing Consults Requested none History Surgery Operation Date: 12/23/20 08:45 Proposed Procedures p Right Carotid Endarterectomy with Bovine Patch Angiogoplasty - Santos Hernandez MD, FACS Operation Date: 12/24/20 11:55 Proposed Procedures p Right Neck Exploration - Santos Hernandez MD, FACS Height/Weight Height: 5 ft 5 in Weight: 85.9 kg Allergies Allergy/AdvReac Type Severity Reaction Status Date / Time pseudoephedrine Allergy Severe IRREGULAR Verified 12/23/20 07:25 HEARTBEAT Medications Home Medications Medication Instructions Recorded Confirmed Last Taken chlorthalidone 25 mg PO QAM 12/13/20 12/23/20 12/23/20 05:45 pantoprazole 40 mg PO DAILY PRN 12/13/20 12/23/20 12/13/20 aspirin 81 mg PO QAM #30 tab 12/14/20 12/23/20 12/23/20 05:45 atorvastatin 40 mg PO QAM 30 Days #30 tab 12/14/20 12/23/20 12/22/20 08:00 clopidogrel 75 mg PO QAM #20 tab 12/14/20 12/23/20 12/23/20 05:45 potassium chloride 10 meq PO DAILY #30 cap 12/14/20 12/23/20 12/22/20 08:00 Active Medications Generic Name Dose Route Start Last Admin Trade Name Freq PRN Reason Stop Dose Admin Atorvastatin Calcium 40 mg 12/24/20 09:00 12/24/20 07:43 Atorvastatin 40 Mg Tab PO 01/23/21 08:59 40 mg QAM NITA Administration Chlorthalidone 25 mg 12/24/20 09:00 12/24/20 07:43 Chlorthalidone 25 Mg Tab PO 01/23/21 08:59 25 mg QAM NITA Administration Lactated Ringer's 1,000 mls @ 100 mls/hr 12/23/20 13:03 12/23/20 23:44 Lr IV 01/22/21 13:02 50 mls/hr .Q10H NITA Administration Nitroglycerin/Dextrose 250 mls @ 0 mls/hr 12/23/20 13:03 12/23/20 19:05 Nitroglycerin/D5w 100 Mcg/Ml IV 01/22/21 13:02 0 mcg/min .Q0M PRN 0 mls/hr Hypertension Titration Protocol 0 MCG/MIN Morphine Sulfate 1 - 4 mg 12/23/20 13:03 12/24/20 12:08 Morphine Sulfate 4 Mg/Ml 1 Ml Carp\\Vial IV 01/06/21 13:02 2 mg Q2H PRN Administration Severe Pain Oxycodone/Acetaminophen 1 - 2 tab 12/23/20 13:03 12/24/20 04:11 Oxycodone/Acetaminophen 5mg/325mg Tab PO 01/06/21 13:02 1 tab Q4H PRN Administration Moderate Pain NPO Date Last Intake of Fluids: 12/24/20 Time Last Intake of Fluids: 07:45 Last Intake of Fluids Comment: sip with meds this am [id number] Date Last Intake of Solids: 12/24/20 Time Last Intake of Solids: 07:45 Last Intake of Solids Comment: applesauce with meds Past Medical History Medical History Carotid stenosis GERD (gastroesophageal reflux disease) HTN (hypertension) Hyperlipidemia Sciatica RT Transient ischemic attack (TIA) RECENT HOSPITALIZATION AT [facility] (NO CURRENT DEFICITS) -" 2 saturdays ago"- no deficits Past Family History Family History Grandmother (Maternal) Colorectal cancer Hypertension Grandfather (Maternal) Cancer bladder CA Mother Cancer Father Family history of esophageal cancer Other No family history of adverse response to anesthesia Past Surgical History Surgical History H/O colonoscopy History of cardiac cath 8 YEARS AGO (NO STENTS) History of dilatation and curettage History of endometrial ablation History of esophagogastroduodenoscopy (EGD) History of laparoscopy History of tonsillectomy and adenoidectomy History of tooth extraction Social History Smoking Status: Never smoker Hx Alcohol Use: Yes (1-2 glasses wine 3 x a week) Alcohol type: wine alcohol intake frequency: a few times a week Hx Substance Use: No substance use type: does not use Physical Exam Vital Signs Last Vital Signs Temp 36.5 C 12/24/20 08:55 Pulse 70 12/24/20 08:55 Resp 14 12/24/20 08:55 BP 112/69 12/24/20 08:55 Pulse Ox 96 12/24/20 08:55 Testing Laboratory Results 12/24/20 05:16 12/24/20 05:16 PT 10.6 Seconds (9.0-12.0) 12/23/20 19:27 INR 1.0 (0.9-1.1) 12/23/20 19:27 APTT 22.1 Seconds (21.0-31.0) 12/23/20 19:27 Blood Type O Positive 12/23/20 07:09 Antibody Screen NEGATIVE 12/23/20 07:09 Electrocardiogram Date: 12/14/20 Normal sinus rhythm at 65bpm. T wave inversion consider anterior ischemia Prolonged QT. When compared with ECG of 13-DEC-2020 15:31, ST no longer depressed in Anterior leads but T waves are more inverted in V1 and V2. (EKG from hospitalization for recent TIA. Troponins performed were NEGATIVE. Subsequent echo WNL.) Chest X-Ray Date: 12/13/20 Findings: + NAD Echocardiogram Date: 12/14/20 EF: 60-65% LV Function: normal RWMA: + none Other Findings: + LVH (mild concentric) and + diastolic dysfunction (grade I) Valvular Disease: + no significant valvular disease No evidence for ASD. Other Testing Neck CTA 12/13/20 IMPRESSION: 1. Severe short segment stenosis (80%) of the proximal right internal carotid artery due to atherosclerotic plaque. 2. No additional stenoses within the major vessels of the neck.
[2020-12-24] MEDS: LACTATED RINGER'S 1,000 ML IV SCH (12:36)
[2020-12-24] MEDS ORDERED: ONDANSETRON INJ 2 MG/ML 2 ML VIAL IV PRN (12:37)
[2020-12-24] MEDS ORDERED: ATROPINE SULFATE 0.1 MG/ML 10ML SYR IV PRN (12:37)
[2020-12-24] MEDS ORDERED: fentaNYL citrate 100 MCG/2 ML VIAL IV PRN (12:37)
[2020-12-24] MEDS ORDERED: ePHEDrine sulfate 50 MG/ML AMP IV PRN (12:37)
[2020-12-24] MEDS ORDERED: LIDOCAINE/EPINEPHRINE 1% 20 ML VIAL ONE (12:46)
[2020-12-24] MEDS ORDERED: HEPARIN (PORCINE) 1000 UNIT/ML 10 ML (CATH LAB USE ONLY) ONE (12:46)
[2020-12-24] MEDS ORDERED: DEXAMETHASONE SOD INJ 4 MG/ML VIAL ONE (13:39)
[2020-12-24] MEDS ORDERED: ONDANSETRON INJ 2 MG/ML 2 ML VIAL ONE (13:39)
--- NOTE | 2020-12-24 13:51 | Post Operative Brief Note ---
PG Immediate Post Op with CF Date of Surgery December 24, 2020 Pre & Post Diagnosis Operation Date: 12/23/20 08:45 Pre-Op Diagnosis: Carotid Stenosis Post-Op Diagnosis: Carotid Stenosis Operation Date: 12/24/20 11:55 <No data on this case meets the specified criteria> I identified the patient and participated in the time-out.: Yes Procedure Operation Date: 12/23/20 08:45 Actual Procedures p Right Carotid Endarterectomy with Bovine Patch Angiogoplasty(Right) - Santos Hernandez MD, FACS Operation Date: 12/24/20 11:55 <No data on this case meets the specified criteria> Surgeon Santos Hernandez MD, FACS Assistant Sales Center Manager b lyndsay silva Estimated Blood Loss 300 Findings Consistent with Post-Op Diagnosis Specimens Specimen Description: A: Carotid Plaque
--- NOTE | 2020-12-24 13:52 | Post Operative Brief Note ---
PG Immediate Post Op with CF Date of Surgery December 24, 2020 Pre & Post Diagnosis Operation Date: 12/23/20 08:45 Pre-Op Diagnosis: Carotid Stenosis Post-Op Diagnosis: Carotid Stenosis Operation Date: 12/24/20 11:55 <No data on this case meets the specified criteria> I identified the patient and participated in the time-out.: Yes Procedure Operation Date: 12/23/20 08:45 Actual Procedures p Right Carotid Endarterectomy with Bovine Patch Angiogoplasty(Right) - Santos Hernandez MD, FACS Operation Date: 12/24/20 11:55 <No data on this case meets the specified criteria> Surgeon Santos Hernandez MD, FACS Swing Grinder b lyndsay silva Estimated Blood Loss 300 Findings Consistent with Post-Op Diagnosis Specimens Specimen Description: A: Carotid Plaque
[2020-12-24] MEDS ORDERED: SURGICEL ABSORB HEMOSTAT 2IN X 14IN TOP ONE (13:55)
--- NOTE | 2020-12-24 13:56 | Post Operative Brief Note ---
PG Immediate Post Op with CF Date of Surgery December 24, 2020 Pre & Post Diagnosis Operation Date: 12/23/20 08:45 Pre-Op Diagnosis: Carotid Stenosis Post-Op Diagnosis: Carotid Stenosis Operation Date: 12/24/20 11:55 <No data on this case meets the specified criteria> I identified the patient and participated in the time-out.: Yes Procedure Operation Date: 12/23/20 08:45 Actual Procedures p Right Carotid Endarterectomy with Bovine Patch Angiogoplasty(Right) - Santos Hernandez MD, FACS Operation Date: 12/24/20 11:55 <No data on this case meets the specified criteria> Surgeon Santos Hernandez MD, FACS Aerospace Project Manager b lyndsay silva Estimated Blood Loss 20 Findings Consistent with Post-Op Diagnosis Specimens Specimen Description: none [address] Drain
--- NOTE | 2020-12-24 14:14 | Operative Report ---
PG Post Operative Report Pre & Post Diagnosis Operation Date: 12/23/20 08:45 Pre-Op Diagnosis: Carotid Stenosis Post-Op Diagnosis: Carotid Stenosis Operation Date: 12/24/20 11:55 Pre-Op Diagnosis: Right Carotid Stenosis Post-Op Diagnosis: Right Carotid Stenosis I identified the patient and participated in the time-out.: Yes Procedure Operation Date: 12/23/20 08:45 Actual Procedures p Right Carotid Endarterectomy with Bovine Patch Angiogoplasty(Right) - Santos Hernandez MD, FACS Operation Date: 12/24/20 11:55 Actual Procedures p Right Neck Exploration, Evacuation of hematoma(Right) - Santos Hernandez MD, FACS I signed 3 immediate postop note none of them reflecting this particular procedure that was completed with the assistance of Dr. Jere Paula The patient was brought into the operating theater general trach anesthesia right neck and chest was prepped byline solution after we had removed the Steri- Strips from a subcuticular closure of the incision a timeout was had the patient was identified systemic antibiotics on board we cut the silk suture that was holding in place the [place] drain also of note and quite interesting when she after intubation we had taken out the dressing that was in run the operative fie ld and on the drain site and had a significant amount of clot once this was evacuated and cleaned out and we reprepped there was no further active bleeding coming out of the Elizabet drain her blood pressure had gone into the 90s whether or not any hypertension may have contributed to the bleed at this point we then opened the incision removing the subcuticular closure there was very little bleeding just some oozing in the subcutaneous tissue we then that went down and removed the 2-0 Vicryl suture in a continuous fashion was reapproximating around the Elizabet site and the operative field we placed a self-retaining Festus retractor identify the patient had large clot along the operative field done in the depths of the carotid and extending up towards the internal carotid area we were able to free this up and there was no active bleeding appreciated in the suture lines we circumferentially irrigated the whole area removed any clotted material and no active bleeding was identified I was concerned that possibly the bleeding may have been coming from the internal carotid area where the artery was small and I had to close the bedside in that area with 7-0 Prolene but there was no bleeding in that area. We irrigated the wound copiously freeing up some subcuticular closures and electrocautery. We then placed a Lane-Henriquez 19 Elias into the wound through separate stab wound of the previous [place] site tension skin edge with 2-[address] some Surgicel along the patch and we left that in the wound was then closed in a similar fashion with 2-0 Vicryl in multiple layers at this time we checked the subcutaneous for any loose was cauterized in line stapler for skin edges dressing was applied estimated blood loss approximately 10 cc patient was extubated and taken back to the ICU addendum due to the potential problems with taking the patient back to surgery with a carotid endarterectomy and known the friability of the internal carotid artery I asked Dr. Jere Paula to assist me anything during the case Surgeon Santos Hernandez MD, FACS Clinical Data Specialist remy silva Estimated Blood Loss 20 Findings Consistent with Post-Op Diagnosis Specimens cloth Description of Procedure merda I attest to the content of the Intraoperative Record and any orders documented therein. Any exceptions are noted below.
[2020-12-24] MEDS ORDERED: ePHEDrine sulfate 50 MG/ML AMP ONE (14:18)
[2020-12-24] MEDS ORDERED: Nursing to Pharmacy Communication SCH (18:00)
[2020-12-25] MEDS: MoRPHine SULFATE 4 MG/ML 1 ML CARP\\VIAL IV PRN (03:06)
[2020-12-25 04:31] LABS: Basophils # (auto) 0.02 K/uL (0-0.2); Basophils % (auto) 0.2 %; Eosinophils # (auto) 0.02 K/uL (0-0.5); Eosinophils % (auto) 0.2 %; Hematocrit (blood only) 30.8 % (37-47); Hemoglobin 10.4 g/dL (12.0-16.0); Immature Granulocytes # (auto) 0.05 K/uL (0.00-0.02); Immature Granulocytes % (auto) 0.4 %; Lymphocytes # (auto) 2.26 K/uL (1.2-3.4); Mean Corpuscular Hemoglobin 32.6 pg (25-34); Mean Corpuscular Hgb Conc 33.8 g/dL (32-36); Mean Corpuscular Volume 96.6 fL (80-100); Mean Platelet Volume 11.7 fL (7.4-10.4); Monocytes # (auto) 0.87 K/uL (0.11-0.59); Monocytes % (auto) 6.5 %; Neutrophils # (auto) 10.11 K/uL (1.4-6.5); Neutrophils % (auto) 75.7 %; Platelet Count 255 K/uL (130-400); RDW Coefficient of Variation 12.8 % (11.5-14.5); RDW Standard Deviation 45.1 fL (36.4-46.3); Red Blood Count 3.19 M/uL (4.2-5.4); White Blood Count 13.33 K/uL (4.8-10.8)
[2020-12-25 04:53] LABS: BUN Creatinine Ratio 17.2 (10-20); Est GFR (African American) 130.7 ml/min; Est GFR (Non-African American) 112.7 ml/min; Potassium 3.6 mmol/L (3.5-5.1)
[2020-12-25] MEDS ORDERED: POTASSIUM CHLORIDE 20 MEQ/15 ML UDC PO STA (05:33)
[2020-12-25] MEDS ORDERED: traMADol HCL 50 MG TABLET PO PRN (06:23)
[2020-12-25] MEDS ORDERED: ACETAMINOPHEN 325 MG TAB PO PRN (06:23)
--- NOTE | 2020-12-25 06:43 | Surgery Progress Note ---
Date of Service December 25, 2020 Assessment & Plan (1) Carotid stenosis, right: Her plan is we will remove the Lane-Henriquez drain the incision try to modify the analgesics written for some Tylenol and Ultram DC the Percocet and morphine we will reevaluate her later today making sure that she is comfortable tolerating the diet and possibly be able to discharge Labs noted Admission and Anticipated Discharge Date Admission Date: December 23, 2020 Subjective Patient states he had a good night still some neck discomfort but better than yesterday states that the Percocet it does not help morphine throughout she would like to try something else She denies any nausea or headache Over the night she is needed any nitroglycerin drip Physical Exam Physical Exam: Is alert coherent comfortable at this time Neurologically intact Neck incision covered with the original dressing which is not saturated the nurses noted there was no drainage other than minimal drainage in the Lane- Henriquez drain and on exam the drain has some serous dark blood Results & Data ([facility]) Vital Signs (Past 12 Hours) Vital Signs Temp Pulse Resp BP Pulse Ox 12/25/20 04:00 64 20 99 12/25/20 03:52 65 13 124/70 98 12/25/20 03:15 36.6 C 12/25/20 02:00 67 13 98 12/25/20 01:52 67 16 137/69 99 12/25/20 01:00 68 17 98 12/25/20 00:52 68 13 117/69 97 12/25/20 00:00 70 17 97 12/24/20 23:52 67 14 122/69 99 12/24/20 23:48 70 12/24/20 23:00 67 11 L 99 12/24/20 22:52 69 14 114/76 98 12/24/20 22:00 73 13 98 12/24/20 21:52 69 12 132/64 98 12/24/20 21:00 79 13 96 12/24/20 20:52 75 24 119/63 92 12/24/20 20:06 36.9 C 12/24/20 20:02 75 12/24/20 20:00 77 13 91 12/24/20 19:52 80 22 136/79 95 12/24/20 19:00 73 13 91 PG Care Time/CCT Total # of Minutes Spent Total Time Spent with Patient: Total time spent is greater than 50% in coordination of care (as documented) at patient's floor/unit and/or counseling patient: Coding Level of Care Code None Diagnoses Carotid stenosis, right I65.21
[2020-12-25] MEDS: CHLORTHALIDONE 25 MG TAB PO SCH (07:47)
[2020-12-25] MEDS: ATORVASTATIN 40 MG TAB PO SCH (07:47)
--- NOTE | 2020-12-25 09:05 | Critical Care Progress Note ---
Date of Service December 25, 2020 Assessment & Plan (1) Post-operative state: PLAN: Neuro: History TIA -Subsequent discovery of right carotid stenosis CV: Hypertension -Home antihypertensives -Borderline high of ideal goal range and with oozing would consider at risk for hematoma and continued close observation ICU Fluids/Renal: Maintenance fluids GI/Nutrition: NPO in case of possible re-exploration if needed Heme: Postoperative anemia DVT prophylaxis: SCDs Endocrine: ICU hyperglycemia protocol Vascular access: Peripheral IV and arterial line Code Status: Full code Disposition: ICU (2) Hypertension: (3) Carotid stenosis, right: Goal blood pressure between 120 and 160 systolic -Arterial line in place Admission and Anticipated Discharge Date Admission Date: December 23, 2020 Physical Exam Physical Exam: General: Alert. nontoxic. Skin: Warm, dry, Head: Atraumatic Ears, nose, mouth and throat: airway patent, no expanding hematoma Cardiovascular: Normal peripheral perfusion Respiratory: no respiratory distress Gastrointestinal: Non distended Musculoskeletal: No deformity Results & Data Results & Data ([facility]) Vital Signs (Past 12 Hours) Vital Signs Temp Pulse Resp BP Pulse Ox 12/25/20 08:52 75 10 L 121/64 95 12/25/20 08:00 36.9 C 79 13 94 12/25/20 07:52 90 15 117/77 97 12/25/20 07:00 75 15 93 12/25/20 06:52 77 21 124/71 91 12/25/20 06:00 67 10 L 100 12/25/20 05:53 67 17 136/77 100 12/25/20 05:00 65 14 100 12/25/20 04:52 79 11 L 144/76 H 97 12/25/20 04:00 64 20 99 12/25/20 03:52 65 13 124/70 98 12/25/20 03:15 36.6 C 12/25/20 02:00 67 13 98 12/25/20 01:52 67 16 137/69 99 12/25/20 01:00 68 17 98 12/25/20 00:52 68 13 117/69 97 12/25/20 00:00 70 17 97 12/24/20 23:52 67 14 122/69 99 12/24/20 23:48 70 12/24/20 23:00 67 11 L 99 12/24/20 22:52 69 14 114/76 98 12/24/20 22:00 73 13 98 12/24/20 21:52 69 12 132/64 98 Laboratory Results 12/25/20 12/25/20 12/24/20 Range/Units 04:03 04:03 23:37 WBC 13.33 H (4.8-10.8) K/uL RBC 3.19 L (4.2-5.4) M/uL Hgb 10.4 L (12.0-16.0) g/dL Hct 30.8 L (37-47) % MCV 96.6 (80-100) fL MCH 32.6 (25-34) pg MCHC 33.8 (32-36) g/dL RDW Std Deviation 45.1 (36.4-46.3) fL RDW Coeff of [place] 12.8 (11.5-14.5) % Plt Count 255 (130-400) K/uL MPV 11.7 H (7.4-10.4) fL Immature Gran % (Auto) 0.4 % Neut % (Auto) 75.7 % Lymph % (Auto) 17.0 % [place] % (Auto) 6.5 % Eos % (Auto) 0.2 % Baso % (Auto) 0.2 % Neut # (Auto) 10.11 H (1.4-6.5) K/uL Lymph # (Auto) 2.26 (1.2-3.4) K/uL [place] # (Auto) 0.87 H (0.11-0.59) K/uL Eos # (Auto) 0.02 (0-0.5) K/uL Baso # (Auto) 0.02 (0-0.2) K/uL Immature Gran # (Auto) 0.05 H (0.00-0.02) K/uL Sodium 138 (136-145) mmol/L Potassium 3.6 (3.5-5.1) mmol/L Chloride 101 (98-107) mmol/L Carbon Dioxide 33 H (21-32) mmol/L Anion Gap 4.0 (3-11) BUN 7 (7-18) mg/dl Creatinine 0.38 L (0.6-1.2) mg/dl Est Cr Clr Drug Dosing 164.0 ml/min Est GFR ( Amer) 130.7 ml/min Est GFR (Non-Af Amer) 112.7 ml/min BUN/Creatinine Ratio 17.2 (10-20) Glucose 111 H (70-99) mg/dl POC Glucose 125 H (70-99) mg/dl Calcium 8.0 L (8.5-10.1) mg/dl 12/24/20 12/24/20 Range/Units 17:56 12:31 WBC (4.8-10.8) K/uL RBC (4.2-5.4) M/uL Hgb (12.0-16.0) g/dL Hct (37-47) % MCV (80-100) fL MCH (25-34) pg MCHC (32-36) g/dL RDW Std Deviation (36.4-46.3) fL RDW Coeff of [place] (11.5-14.5) % Plt Count (130-400) K/uL MPV (7.4-10.4) fL Immature Gran % (Auto) % Neut % (Auto) % Lymph % (Auto) % [place] % (Auto) % Eos % (Auto) % Baso % (Auto) % Neut # (Auto) (1.4-6.5) K/uL Lymph # (Auto) (1.2-3.4) K/uL [place] # (Auto) (0.11-0.59) K/uL Eos # (Auto) (0-0.5) K/uL Baso # (Auto) (0-0.2) K/uL Immature Gran # (Auto) (0.00-0.02) K/uL Sodium (136-145) mmol/L Potassium (3.5-5.1) mmol/L Chloride (98-107) mmol/L Carbon Dioxide (21-32) mmol/L Anion Gap (3-11) BUN (7-18) mg/dl Creatinine (0.6-1.2) mg/dl Est Cr Clr Drug Dosing ml/min Est GFR ( Amer) ml/min Est GFR (Non-Af Amer) ml/min BUN/Creatinine Ratio (10-20) Glucose (70-99) mg/dl POC Glucose 199 H 113 H (70-99) mg/dl Calcium (8.5-10.1) mg/dl Coding Level of Care Code 41423 Subseq Hosp Care Lvl 3 Diagnoses Post-operative state Z98.890 Hypertension I10 Hypertension type: essential hypertension Carotid stenosis, right I65.21 (1) Hypertension Hypertension type: essential hypertension Qualified Code(s): I10 - Essential (primary) hypertension
[2020-12-25] MEDS ORDERED: COUGH DROP (SUGAR FREE) LOZ 24 LOZ/1 BOX BUCCAL ONE (09:28)
--- NOTE | 2020-12-26 05:32 | Electrocardiogram Report ---
Test Reason : Blood Pressure : / mmHG Vent. Rate : 061 BPM Atrial Rate : 061 BPM P-R Int : 154 ms QRS Dur : 100 ms QT Int : 512 ms P-R-T Axes : 050 013 100 degrees QTc Int : 515 ms Normal sinus rhythm T wave abnormality, consider anterior ischemia Prolonged QT Abnormal ECG When compared with ECG of 14-DEC-2020 05:48, QT has lengthened Confirmed by Pérez Curry ([id number]) on 12/26/2020 5:32:10 AM Referred By: Santos Hernandez Confirmed By:Pérez Curry
--- NOTE | 2020-12-29 09:44 | Discharge Summary ---
Date of Service December 29, 2020 Principal Diagnosis Right carotid artery stenosis Discharge Exam Constitutional WD/WN, vitals as above Neck trachea midline (incision dry, some ecchymosis along incision, no neuro deficit) Discharge Data Allergies Allergy/AdvReac Type Severity Reaction Status Date / Time pseudoephedrine Allergy Severe IRREGULAR Verified 12/23/20 07:25 HEARTBEAT Consultations 12/23/20 13:03 Consult Vamp Marker Routine Procedures Performed Operation Date: 12/23/20 08:45 Actual Procedures p Right Carotid Endarterectomy with Bovine Patch Angiogoplasty(Right) - Santos Hernandez MD, FACS Operation Date: 12/24/20 11:55 Actual Procedures p Right Neck Exploration, Evacuation of hematoma(Right) - Santos Hernandez MD, FACS Hospital Course (1) Carotid stenosis, right: 65 y/o female with 80% right carotid stenosis and recent TIA was taken to the OR for carotid endarterectomy with patch angioplasty. She was transferred to the ICU routinely for blood pressure monitoring. On postop day 1 she had some oozing from the addi drain and some fullness of the right neck and she was taken back to the OR for wound exploration and evacuation of clot. No bleeding was identified from the patch and a ECTOR drain was left. Her BP remained stable over the next 24 hours and there was minimal ECTOR drainage. The ECTOR drain was removed and she was stable for discharge home later in the afternoon. Her aspirin and Plavix will be held although we plan to resume aspirin after she is seen in clinic next week. Total Time Total Time Spent Total Time Spent (In Minutes): 15 Discharge Plan Discharge Items Patient Disposition: Home - Self-Care Reason For Visit: Carotid Stenosis Discharge Diagnosis: right carotid endarterectomy Activity: Per Instructions section Lifting: No more than 10 pounds Bathing Comment: may shower; no soaking in tubs/pools Exercise/Sports: Wait until after follow-up appointment Driving/Machine Use: wait at least 1 week and until cleared by surgeon Non-emergency contact: Surgeon Call non-emergency contact if: you have any medication questions, your symptoms worsen, your pain is not controlled, your pain is worsening, your pain is concerning for you, you have a fever, your temperature is above 101.5, your wound has increased redness, your wound has increased drainage and your wound pain has increased Follow-up/Referrals: Santos Hernandez MD, FACS [Surgeon] - (Please call to schedule follow up in clinic within 1 week) Evelio Stephens MD [Primary Care Provider] - Diet: Regular Addtl Attending Provider Instructions: You have surgical radha that will be removed at one of your follow up appointments Pending Studies at Discharge: Yes Studies:: surgical pathology Stand-Alone Forms: [facility], Smoking Cessation Medications and DC Order Prescriptions: New tramadol [Ultram] 50 mg tablet 50 mg PO Q4H PRN (Reason: pain) Qty: 15 RF: 0 Continued chlorthalidone 25 mg tablet 25 mg PO QAM RF: 0 pantoprazole 40 mg tablet,delayed release (DR/EC) 40 mg PO DAILY PRN (Reason: Acid Reflux) RF: 0 atorvastatin 40 mg Tablet 40 mg PO QAM 30 Days Qty: 30 RF: 0 potassium chloride 10 mEq capsule, extended release 10 meq PO DAILY Qty: 30 RF: 0 Discontinued clopidogrel 75 mg Tablet 75 mg PO QAM Qty: 20 RF: 0 aspirin 81 mg Tablet,Delayed Release (Dr/Ec) 81 mg PO QAM Qty: 30 RF: 0 Discharge Orders: Discharge Order (Routine); Ordered 12/25/20 Ordered By: Cody Salinas Admission Data Admit Date/Time: 12/23/20 11:20 Attending Provider: Santos Hernandez Admit Provider: Santos Hernandez Primary Care Provider: Evelio Stephens Other Providers: Karel Ramos Other Interventions: Discharge Summary Assessment (RN) Last Done: 12/25/20 13:44 Coding Level of Care Code D/C Day Management <30 mins Diagnoses Carotid stenosis, right I65.21
--- NOTE | 2021-01-01 14:07 | Coding Query ---
CODING QUERY To promote full compliance with coding requirements relating to patient care, provider participation is requested in all cases of senior software quality analyst uncertainty. Please assist us with the question(s) below: Coding Question(s): The 12/24/20 H&P Bridge Note documents, "we need to reexplore her for postoperative bleeding" and the 12/24/20 Operative Report documents, "Evacuation of hematoma(Right)", and, "the patient had large clot along the operative field done in the depths of the carotid and extending up towards the internal carotid area we were able to free this up and there was no active bleeding appreciated in the suture lines we circumferentially irrigated the whole area removed any clotted material and no active bleeding was identified I was concerned that possibly the bleeding may have been coming from the internal carotid area where the artery was small and I had to close the bedside in that area with 7-0 Prolene but there was no bleeding in that area" and the Discharge Summary documents, "On postop day 1 she had some oozing from the addi drain and some fullness of the right neck and she was taken back to the OR for wound exploration and evacuation of clot. No bleeding was identified from the patch and a ECTOR drain was left". Please specify below, in your clinical opinion, regarding Postoperative Bleeding, Hematoma and Clot documentation. ( ) Postoperative bleeding from drain site, and Hematoma/Clot in Right Carotid Artery are Postoperative Complications ( ) Postoperative bleeding from drain site, and Hematoma/Clot in Right Carotid Artery are Not Postoperative Complications ( x ) Other: Please Specify__post op bleeding pt was on Plavix and aspirin preop we did not stop intentionally kept her on Physician's Response(s): Thank you Alem Gallagher Principal Diagnosis: "that condition established after study, to be chiefly responsible for occasioning the admission of the patient to the hospital for care." Co-Existing Principal Diagnosis: "when two or more diagnoses equally meet the criteria for principal diagnosis as determined by the circumstances of admission, diagnostic work up, and/or therapy provided, and the Alphabetic Index, Tabular List, or another coding guideline does not provide sequencing direction, any one of the diagnoses may be sequenced first." "When the physician has documented what appears to be a current diagnosis in the body of the record, but has not included the diagnosis in the final diagnostic statement, the physician should be asked whether the diagnosis should be added." ([facility] 2 QTR90. p3-4) KURT
--- NOTE | 2021-01-01 14:08 | Coding Query ---
ANEMIA To promote full compliance with coding requirements relating to patient care, physician participation is requested in all cases of film reproducer uncertainty. Please assist us with the question(s) below: Coding Question(s): The record reflects the following clinical findings: The Critical Care Progress Note on 12/24/20 documents Postoperative Anemia. If these findings are indicative of anemia, please specify the known or suspected type by placing an "X" within the parenthesis (x). If other, please document type. Examples are: ( ) Acute blood loss anemia ( ) Acute Postoperative blood loss anemia ( ) Acute postoperative anemia due to dilutional fluids ( ) Chronic blood loss anemia ( ) Anemia of chronic disease ( ) Aplastic anemia ( ) Anemia due to renal disease ( ) Anemia in neoplastic disease ( ) Iron deficient anemia (X ) Anemia, unspecified or other ( ) Other: (please specify) ( ) Unable to determine Thank you Alem Gallagher [facility]ite
== END 2020-12-25 15:00 | disposition home or self-care (01) | DRG 38 ==
LOC: ASU 06:52 → 1E 11:20

== ENCOUNTER 2021-03-10 03:46 | Observation (INO) ==
[2021-03-10] MEDS ORDERED: ASPIRIN CHEW 324 MG PO STA (03:59)
[2021-03-10] MEDS ORDERED: NITROGLYCERIN SL 0.4 MG/TAB TAB SL STA (03:59)
--- NOTE | 2021-03-10 04:23 | Emergency Department Note ---
History of Present Illness General Chief Complaint: Chest Pain Stated Complaint: CHEST PAIN Time Seen by Provider: 03/10/21 03:56 History of Present Illness Maximum Pain Intensity: 9 This 65-year-old who had carotidectomy 2 months ago presents to the ER complaining of severe chest pain tonight that woke her from sleep Location: Chest Quality: Pain Severity: Severe Duration: Tonight Timing: Started 2 AM Context: Patient was concerned and came in Modifying factors: better with Tums; worse with nothing Patient denies prior heart disease. She does not smoke. 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 Patient denies dyspnea, abdominal pain, fever, chills, flulike illness, leg pain or swelling. She has received her Covid vaccines. Home Medications Medication Instructions Recorded Confirmed Type chlorthalidone 25 mg tablet 25 mg PO QAM 12/13/20 01/21/21 History pantoprazole 40 mg tablet,delayed 40 mg PO DAILY PRN 12/13/20 01/21/21 History release potassium chloride 10 mEq 10 meq PO DAILY #30 cap 12/14/20 01/21/21 Rx capsule,extended release Allergies Allergy/AdvReac Type Severity Reaction Status Date / Time pseudoephedrine Allergy Severe IRREGULAR Verified 01/21/21 08:24 HEARTBEAT Past Med/Surg History Medical History Carotid stenosis GERD (gastroesophageal reflux disease) HTN (hypertension) Hyperlipidemia Sciatica RT Transient ischemic attack (TIA) RECENT HOSPITALIZATION AT [facility] (NO CURRENT DEFICITS) -" 2 saturdays ago"- no deficits Surgical History H/O colonoscopy History of cardiac cath 8 YEARS AGO (NO STENTS) History of dilatation and curettage History of endometrial ablation History of esophagogastroduodenoscopy (EGD) History of laparoscopy History of tonsillectomy and adenoidectomy History of tooth extraction Family History Grandmother (Maternal) Colorectal cancer Hypertension Grandfather (Maternal) Cancer bladder CA Mother Cancer Father Family history of esophageal cancer Other No family history of adverse response to anesthesia Social History Smoking Status: Never smoker Second Hand Exposure: Yes ( A CHILD); Hx Alcohol Use: Yes (1-2 glasses wine 3 x a week) Alcohol type: wine Hx Substance Use: No Preferred Language: Mohawk Communication Ability: Effective Canvas Worker Required: No Beliefs That Will Affect Care: None marital status: Current Living Situation: Spouse current occupational status: employed 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 How many Children do You have: 1 Feels Safe at Home: Yes during the past year weight has: increased > 10 lbs Assistive Devices: Oxygen - at Night Review of Systems A total of 10 systems reviewed and were otherwise negative Physical Exam Vital Signs Vital Signs - 24 hr 03/10/21 03:51 03/10/21 04:04 03/10/21 04:15 Temperature 36.8 C Temperature Source Oral Pulse Rate 71 72 Pulse Rhythm Regular Pulse Strength Normal Respiratory Rate 20 16 Respiratory Effort / Characteristics Non-Labored Respiratory Depth Normal Respiratory Pattern Regular Blood Pressure 165/85 H 133/65 Blood Pressure Mean 111 87 Blood Pressure Position Lying Pulse Oximetry 95 97 96 Oxygen Delivery Method Room Air Room Air Sepsis Recent Fever Within 48 Hours No Sepsis New/Unexplained Change in Mental Status N/A Sepsis Action Taken by Nursing No Action Required 03/10/21 04:30 03/10/21 05:00 03/10/21 05:31 Temperature Temperature Source Pulse Rate 72 73 83 Pulse Rhythm Pulse Strength Respiratory Rate 14 16 20 Respiratory Effort / Characteristics Respiratory Depth Respiratory Pattern Blood Pressure 126/78 145/76 H 168/80 H Blood Pressure Mean 94 99 109 Blood Pressure Position Pulse Oximetry 94 96 99 Oxygen Delivery Method Sepsis Recent Fever Within 48 Hours Sepsis New/Unexplained Change in Mental Status Sepsis Action Taken by Nursing VITALS: Vitals are noted on the nurse's note and reviewed by myself. Vital signs stable. GENERAL: Pleasant female, in no acute distress, nondiaphoretic, well-developed well-nourished. SKIN: The skin was without rashes, erythema, edema, or bruising. There is no tenting of the skin. Capillary reflex less than 2 seconds. HEAD: Normocephalic atraumatic. EARS: External auditory canals clear, EYES: Pupils equal round and reactive to light and accommodation. Conjunctivae without injection, sclerae without icterus. Extraocular movements intact. NOSE: Patent, turbinates without inflammation or discharge. MOUTH: Mucous membranes moist. Pharynx without erythema or exudate. Uvula midline. Airway patent. Tongue does not deviate. NECK: Supple without nuchal rigidity. No lymphadenopathy. No thyromegaly. Cervical spine is nontender. No JVD. HEART: Regular rate and rhythm, chest nontender to palpation LUNGS: Clear to auscultation bilaterally without wheezes, rales or rhonchi. No retractions or accessory muscle use. ABDOMEN: Positive bowel sounds x 4. Normal tympanic percussion. Soft, nontender, without masses or organomegaly. Abdalla sign negative. No guarding or rebound tenderness. No CVA tenderness MUSCULOSKELETAL: No muscle atrophy, erythema, or edema noted. NEURO: Patient was alert and oriented to person place and time. Normal sensation to light and sharp touch. No focal neurological deficits. Course Administered Medications Potassium Chloride (K Jerald / Wtr) 10 meq in 100 mls @ 100 mls/hr IV Q1H NITA Stop: 03/10/21 07:14 Last Admin: 03/10/21 05:31 Dose: 100 mls/hr Documented by: [id number] Discontinued Medications Al Hydrox/Mg Hydrox/Simethicone (Aluminum/Magnesium Susp 30 Ml Udc) 30 ml PO NOW STA Stop: 03/10/21 04:47 Last Admin: 03/10/21 05:02 Dose: 30 ml Documented by: [id number] Aspirin (Aspirin Chew 324 Mg) 324 mg PO NOW STA Stop: 03/10/21 04:00 Last Admin: 03/10/21 04:08 Dose: 324 mg Documented by: [id number] Ioversol (Optiray 320 125ml) 125 ml IV ONCE ONE Stop: 03/10/21 05:29 Last Admin: 03/10/21 05:28 Dose: 87 ml Documented by: [id number] Nitroglycerin (Nitroglycerin Sl 0.4 Mg/Tab Tab) 0.4 mg SL NOW STA Stop: 03/10/21 04:00 Last Admin: 03/10/21 04:09 Dose: 0.4 mg Documented by: [id number] Nitroglycerin (Nitroglycerin 2% Ointment 30gm Tube) 0.5 inch EXT NOW ONE Stop: 03/10/21 04:32 Last Admin: 03/10/21 04:40 Dose: 0.5 inch Documented by: [id number] Potassium Chloride (Potassium Chloride 10 Meq Tabcr) 40 meq PO NOW STA Stop: 03/10/21 05:03 Last Admin: 03/10/21 05:32 Dose: 40 meq Documented by: [id number] Medical Decision Making Medical Records Attestation: I reviewed the patient's medical records. Home Medications Current Medication List: was personally reviewed by me Laboratory Data Attestation: I reviewed the patient's lab results. Result diagrams: 03/10/21 03:55 03/10/21 03:55 Labs: Lab Results 03/10/21 03/10/21 03/10/21 Range/Units 03:55 03:55 03:55 WBC 9.26 (4.8-10.8) K/uL RBC 4.55 (4.2-5.4) M/uL Hgb 14.9 (12.0-16.0) g/dL Hct 43.6 (37-47) % MCV 95.8 (80-100) fL MCH 32.7 (25-34) pg MCHC 34.2 (32-36) g/dL RDW Std Deviation 43.9 (36.4-46.3) fL RDW Coeff of Lawrence 12.6 (11.5-14.5) % Plt Count 387 (130-400) K/uL MPV 11.6 H (7.4-10.4) fL Immature Gran % (Auto) 0.3 % Neut % (Auto) 60.7 % Lymph % (Auto) 28.1 % Weston % (Auto) 7.8 % Eos % (Auto) 2.8 % Baso % (Auto) 0.3 % Neut # (Auto) 5.62 (1.4-6.5) K/uL Lymph # (Auto) 2.60 (1.2-3.4) K/uL Weston # (Auto) 0.72 H (0.11-0.59) K/uL Eos # (Auto) 0.26 (0-0.5) K/uL Baso # (Auto) 0.03 (0-0.2) K/uL Immature Gran # (Auto) 0.03 H (0.00-0.02) K/uL APTT 24.9 (21.0-31.0) Seconds PTT Ratio 0.9 D-Dimer 1150 H* (0-500) ug/L FEU Sodium 138 (136-145) mmol/L Potassium 2.7 L (3.5-5.1) mmol/L Chloride 97 L (98-107) mmol/L Carbon Dioxide 34 H (21-32) mmol/L Anion Gap 7.0 (3-11) BUN 7 (7-18) mg/dl Creatinine 0.54 L (0.6-1.2) mg/dl Est Cr Clr Drug Dosing 112.9 ml/min Est GFR ( Amer) 116.4 ml/min Est GFR (Non-Af Amer) 100.4 ml/min BUN/Creatinine Ratio 13.6 (10-20) Glucose 133 H (70-99) mg/dl Calcium 9.5 (8.5-10.1) mg/dl Magnesium 2.0 (1.8-2.4) mg/dl Total Bilirubin 0.3 (0.2-1) mg/dl AST 58 H (15-37) U/L ALT 58 (12-78) U/L Alkaline Phosphatase 123 H (45-117) U/L Troponin I < 0.015 (0-0.045) ng/ml Total Protein 8.8 H (6.4-8.2) gm/dl Albumin 3.5 (3.4-5.0) gm/dl Globulin 5.3 H (2.5-4.0) gm/dl Albumin/Globulin Ratio 0.7 L (0.9-2) Lipase 136 (73-393) U/L COVID-19 Eval Order SARS-CoV-2 (PCR) (Negative) 03/10/21 03/10/21 Range/Units 04:05 04:05 WBC (4.8-10.8) K/uL RBC (4.2-5.4) M/uL Hgb (12.0-16.0) g/dL Hct (37-47) % MCV (80-100) fL MCH (25-34) pg MCHC (32-36) g/dL RDW Std Deviation (36.4-46.3) fL RDW Coeff of Lawrence (11.5-14.5) % Plt Count (130-400) K/uL MPV (7.4-10.4) fL Immature Gran % (Auto) % Neut % (Auto) % Lymph % (Auto) % Weston % (Auto) % Eos % (Auto) % Baso % (Auto) % Neut # (Auto) (1.4-6.5) K/uL Lymph # (Auto) (1.2-3.4) K/uL Weston # (Auto) (0.11-0.59) K/uL Eos # (Auto) (0-0.5) K/uL Baso # (Auto) (0-0.2) K/uL Immature Gran # (Auto) (0.00-0.02) K/uL APTT (21.0-31.0) Seconds PTT Ratio D-Dimer (0-500) ug/L FEU Sodium (136-145) mmol/L Potassium (3.5-5.1) mmol/L Chloride (98-107) mmol/L Carbon Dioxide (21-32) mmol/L Anion Gap (3-11) BUN (7-18) mg/dl Creatinine (0.6-1.2) mg/dl Est Cr Clr Drug Dosing ml/min Est GFR ( Amer) ml/min Est GFR (Non-Af Amer) ml/min BUN/Creatinine Ratio (10-20) Glucose (70-99) mg/dl Calcium (8.5-10.1) mg/dl Magnesium (1.8-2.4) mg/dl Total Bilirubin (0.2-1) mg/dl AST (15-37) U/L ALT (12-78) U/L Alkaline Phosphatase (45-117) U/L Troponin I (0-0.045) ng/ml Total Protein (6.4-8.2) gm/dl Albumin (3.4-5.0) gm/dl Globulin (2.5-4.0) gm/dl Albumin/Globulin Ratio (0.9-2) Lipase (73-393) U/L COVID-19 Eval Order Covid19 at [facility] SARS-CoV-2 (PCR) NEGATIVE (Negative) MDM Narrative Prior records/ancillary studies reviewed. Triage Nursing notes reviewed. Additional history obtained from family. The patient's history was concerning for chest pain. Differential diagnosis: Etiologies such as cardiac ischemia, aortic dissection, pulmonary embolism, pneumonia, pneumothorax, musculoskeletal, infections, pericarditis, myocarditis, esophageal rupture, gastrointestinal, as well as others were entertained. Physical examination: As above. ER treatment provided: An order was placed for continuous cardiac monitoring. The monitor shows a rate of 60-100 with a sinus rhythm. Aspirin, nitroglycerin, potassium On reassessment the patient felt better. Diagnostic interpretation by me: #1 the electrocardiogram was normal sinus, normal intervals, T wave inversions in the anteroseptal leads, rate of 70. Impression normal sinus rhythm with T wave inversions in the anterior septal leads unchanged from prior interpreted by myself EKG ordered for chest pain I think arrhythmia is unlikely. EKG shows no interval abnormalities such as QT prolongation or WPW. There are no findings to suggest Brugada syndrome. Cardiac monitoring in the emergency department reveals no tachycardic or bradycardic dysrhythmia. Hypertrophic cardiomyopathy was considered but there are no clear historical elements pointing toward this. EKG is not suggestive. The QRS voltage is not extremely large and there are no suggestive Q waves. #2 EKG ordered for chest pain EKG: Normal sinus, T wave inversions in aVL, anterior septal with T wave flatten ing in the lateral leads, rate of 74, impression increasing T wave inversions in the anteroseptal and lateral lead changes interpreted by myself. I think arrhythmia is unlikely. EKG shows no interval abnormalities such as QT prolongation or WPW. There are no findings to suggest Brugada syndrome. Cardiac monitoring in the emergency department reveals no tachycardic or bradycardic dysrhythmia. Hypertrophic cardiomyopathy was considered but there are no clear historical elements pointing toward this. EKG is not suggestive. The QRS voltage is not extremely large and there are no suggestive Q waves. #3: EKG ordered for chest pain EKG:[]Normal sinus, T wave inversions in aVL, anterior septal with T wave flattening in the lateral leads, rate of 74, impression T wave inversions in the anteroseptal and lateral lead changes interpreted by myself. I think arrhythmia is unlikely. EKG shows no interval abnormalities such as QT prolongation or WPW. There are no findings to suggest Brugada syndrome. Cardiac monitoring in the emergency department reveals no tachycardic or bradycardic dysrhythmia. Hypertrophic cardiomyopathy was considered but there are no clear historical elements pointing toward this. EKG is not suggestive. The QRS voltage is not extremely large and there are no suggestive Q waves. The labs revealed negative troponin, positive D-dimer, hypokalemia this was placed orally and magnesium levels were sent Imaging studies: Chest x-ray with no acute consolidation, pneumothorax or free air per my interpretation CTA CHEST: No pulmonary embolus. No aortic aneurysm or dissection. The lungs are clear. Heart size is normal. No pathologically enlarged lymph nodes. No fracture. Radiologist: Eufemia Barreto MD HEART SCORE: Hx: high/mod/low suspicion: 1 ECG: ST depression/nonspecific changes/normal: 1 Age: Greater than 65/45-64/less than 45: 1 Risk factors: (Hypertension, hyperlipidemia, diabetes, coronary disease, tobacco use, cocaine use): 1 Troponin: Greater than 2 times normal limits/1-2 times normal limits/normal: 0 Total: 4 Consultation: A consultation was placed with the hospitalist. The case was discussed and diagnostics were reviewed. The patient was evaluated in the ER for further treatment. Exam and history seem consistent with chest pain with concerns for cardiac and etiology. Patient felt better after nitroglycerin and aspirin. Patient had EKG changes while in the ER. Medicine was consulted. She will be evaluated for admission. By the evaluation outlined above emergent etiologies such as aortic dissection, pulmonary embolism, pneumonia, pneumothorax, infections, pericarditis, myocarditis, gastrointestinal, as well as others were deemed relatively unlikely. The pt informed about the findings as listed above. All questions were answered and pleased with the treatment. The chart was completed utilizing [employer] Speech voice recognition software. Grammatical errors, random word insertions, pronoun errors, and incomplete se ntences are an occassional consequence of this system due to software limitations, ambient noise, and hardware issues. Any formal questions or concerns about the content, text, or information contained within the body of this dictation should be directly addressed to the physician phys assistant for cla rification. Impression & Plan Atypical chest pain, Hypokalemia Discharge Plan Visit Data Chief Complaint: Chest Pain Stated Complaint: CHEST PAIN ED Provider: Vianney Barrett ED Midlevel Provider: Liz Liz Discharge Problem: Atypical chest pain, Hypokalemia Patient Disposition: Admitted As Inpatient Condition: Fair Forms Stand Alone Forms: [facility] [employer]line Prescriptions Prescriptions: No Action chlorthalidone 25 mg tablet 25 mg PO QAM RF: 0 pantoprazole 40 mg tablet,delayed release (DR/EC) 40 mg PO DAILY PRN (Reason: Acid Reflux) RF: 0 potassium chloride 10 mEq capsule, extended release 10 meq PO DAILY Qty: 30 RF: 0 Referrals Referrals: Evelio Stephens MD [Primary Care Provider] -
[2021-03-10] MEDS ORDERED: NITROGLYCERIN 2% OINTMENT 30GM TUBE EXT ONE (04:31)
[2021-03-10 04:43] LABS: Basophils # (auto) 0.03 K/uL (0-0.2); Basophils % (auto) 0.3 %; Eosinophils # (auto) 0.26 K/uL (0-0.5); Eosinophils % (auto) 2.8 %; Hematocrit (blood only) 43.6 % (37-47); Hemoglobin 14.9 g/dL (12.0-16.0); Immature Granulocytes # (auto) 0.03 K/uL (0.00-0.02); Immature Granulocytes % (auto) 0.3 %; Lymphocytes % (auto) 28.1 %; Mean Corpuscular Hemoglobin 32.7 pg (25-34); Mean Corpuscular Hgb Conc 34.2 g/dL (32-36); Mean Corpuscular Volume 95.8 fL (80-100); Mean Platelet Volume 11.6 fL (7.4-10.4); Monocytes # (auto) 0.72 K/uL (0.11-0.59); Monocytes % (auto) 7.8 %; Neutrophils # (auto) 5.62 K/uL (1.4-6.5); Neutrophils % (auto) 60.7 %; Platelet Count 387 K/uL (130-400); RDW Coefficient of Variation 12.6 % (11.5-14.5); RDW Standard Deviation 43.9 fL (36.4-46.3); Red Blood Count 4.55 M/uL (4.2-5.4); White Blood Count 9.26 K/uL (4.8-10.8)
[2021-03-10] MEDS ORDERED: ALUMINUM/MAGNESIUM SUSP 30 ML UDC PO STA (04:46)
[2021-03-10 04:54] LABS: Partial Thromboplastin Ratio 0.9; Partial Thromboplastin Time 24.9 Seconds (21.0-31.0)
[2021-03-10 04:58] LABS: D Dimer 1150 ug/L FEU (0-500)
[2021-03-10 05:02] LABS: Alanine Aminotransferase 58 U/L (12-78); Albumin Level 3.5 gm/dl (3.4-5.0); Aspartate Aminotransferase 58 U/L (15-37); BUN Creatinine Ratio 13.6 (10-20); Blood Urea Nitrogen 7 mg/dl (7-18); Calcium 9.5 mg/dl (8.5-10.1); Carbon Dioxide 34 mmol/L (21-32); Chloride 97 mmol/L (98-107); Creatinine Clr Calc Pharmacy 112.9 ml/min; Est GFR (African American) 116.4 ml/min; Est GFR (Non-African American) 100.4 ml/min; Glucose 133 mg/dl (70-99); Lipase 136 U/L (73-393); Potassium 2.7 mmol/L (3.5-5.1); Sodium 138 mmol/L (136-145)
[2021-03-10] MEDS ORDERED: POTASSIUM CHLORIDE 10 MEQ TABCR PO STA (05:02)
[2021-03-10 05:07] LABS: Albumin Globulin Ratio 0.7 (0.9-2); Alkaline Phosphatase 123 U/L (45-117); Bilirubin,Total 0.3 mg/dl (0.2-1); Globulin 5.3 gm/dl (2.5-4.0); Total Protein 8.8 gm/dl (6.4-8.2); Troponin I < 0.015 ng/ml (0-0.045)
[2021-03-10] MEDS ORDERED: OPTIRAY 320 125ml IV ONE (05:28)
[2021-03-10] MEDS: POTASSIUM CHLORIDE / WTR 10 MEQ/100 ML PLCT IV SCH ×2 (05:31→06:29)
[2021-03-10] MEDS ORDERED: POTASSIUM CHLORIDE / WTR 10 MEQ/100 ML PLCT IV STA (06:34)
[2021-03-10] MEDS ORDERED: POTASSIUM CHLORIDE CRTAB 20 MEQ TABCR PO STA (06:34)
--- NOTE | 2021-03-10 06:58 | XRay Report ---
XR chest 1V portable HISTORY: 65 years-old Female Chest Pain acute atypical chest pain COMPARISON: Chest radiograph 12/13/2020, CTA chest 03/10/2021 TECHNIQUE: Portable AP view of the chest FINDINGS: The cardiomediastinal and hilar silhouettes are within normal limits. There is no pneumothorax, pleur al effusion, airspace consolidation or overt pulmonary edema. Bones of the chest appear grossly intac t. IMPRESSION: No acute process. ACT 112: Negative or not required by law. The above report was generated using voice recognition software. It may contain grammatical, syntax o r spelling errors. Electronically signed by: Marquez Astudillo M.D. 03/10/2021 6:56 AM
--- NOTE | 2021-03-10 07:24 | CT Scan Report ---
CT angio chest PE protocol CT DOSE: 360.61 mGy.cm HISTORY: 65 years-old Female with PE. Acute shortness of breath TECHNIQUE: Multiple CTA images of the chest were obtained after the intravenous administration of 87 ml Optiray. Coronal and sagittal MIPS were obtained from the axial data set and were submitted for r eview. All measurements were obtained according to NASCET criteria. A dose lowering technique was ut ilized adhering to the principles of ALARA. COMPARISON: Chest radiograph of same day FINDINGS: CTA: There is adequate opacification of the pulmonary arteries to the level of the subsegmental branches w ithout convincing evidence of acute pulmonary embolism. The main pulmonary artery is dilated measurin g up to 3.5 cm transversely. Mild atherosclerotic plaque of the nondilated thoracic aorta. No dissect ion.The heart is mildly enlarged. No pericardial effusion. CT CHEST: There are a few subcentimeter hypodense bilateral thyroid nodules. No pathologically enlarged lymph n odes are identified. No pneumothorax, pleural effusion, airspace consolidation or overt pulmonary emeka ma. No suspicious pulmonary nodules or masses. The central airways are patent. No pneumoperitoneum. No acute process of the imaged upper abdomen. Hepatic steatosis. Unremarkable so ft tissues. There is no acute fracture. Degenerative changes of the shoulders and spine. IMPRESSION: 1. No acute intrathoracic abnormality. 2. Cardiomegaly without pulmonary emboli. 3. Hepatic steatosis. ACT 112: Negative or not required by law. The above report was generated using voice recognition software. It may contain grammatical, syntax o r spelling errors. Electronically signed by: Marquez Astudillo M.D. 03/10/2021 7:22 AM
--- NOTE | 2021-03-10 07:44 | History and Physical Report ---
DATE OF ADMISSION: 03/10/2021. CHIEF COMPLAINT: Chest pain. HISTORY OF PRESENT ILLNESS: This is a 65-year-old female with past medical history significant for hyperlipidemia, hypokalemia, hypomagnesemia, allergic rhinitis, hypertension, history of TIA, history of grade 1 diastolic CHF, history of internal carotid artery stenosis on the right side, dysplasia of cervix, sebaceous cyst, endometriosis, who presents with chest pain. The patient woke up with severe chest pain, in the middle of the chest. No radiation, no shortness of breath, no dizziness, no sweating, no cough. The patient received aspirin and nitro and currently the pain is resolved. Resting comfortably currently. Denies any fever or chills. No cough, no nausea, no abdominal pain. Normal bowel and bladder movements. Otherwise, ambulates and climbs steps okay. No headache, no dizziness, no blurred visions, no earache, no runny nose, no sore throat. Appetite is okay. ALLERGIES: PSEUDOEPHEDRINE. PAST MEDICAL HISTORY: As mentioned above. PAST SURGICAL HISTORY: Colonoscopy with biopsies, colposcopy, EGD, hysteroscopy, tonsillectomy, small bowel endoscopy with biopsy, right thromboendarterectomy in December 2020. MEDICATIONS: The patient is on atorvastatin 40 mg p.o. daily, aspirin 81 mg p.o. daily, chlorthalidone 25 mg p.o. daily, loratadine 10 mg p.o. daily. FAMILY HISTORY: Significant for father had throat cancer; mother had colon cancer; maternal grandmother had hypertension, maternal grandmother has colon cancer; mother has endometrial cancer. SOCIAL HISTORY: . No smoking. Alcohol over the weekend. No drug use. REVIEW OF SYSTEMS: As per HPI. Rest of the review of systems is negative. PHYSICAL EXAMINATION: GENERAL: The patient is of moderate build, not in acute distress. VITAL SIGNS: Temperature 36.8, pulse 82, respiratory rate 16, blood pressure 135/84, oxygen 94% on room air. HEENT: Pupils equal, round and reactive to light. Oral mucosa moist. NECK: No JVD, no neck masses. CARDIOVASCULAR: S1 and S2 heard. Regular rate and rhythm. No murmur, no gallop. RESPIRATORY SYSTEM: Normal AP diameter. No accessory muscle use. No wheezing, no crackles. ABDOMEN: Soft, bowel sounds present, nontender, no distention. CENTRAL NERVOUS SYSTEM: Cranial nerves II-XII grossly intact, nonfocal. EXTREMITIES: No edema, no erythema. LABORATORY DATA: WBC 9.2, hemoglobin 14.9, hematocrit 43.6, platelets 387. APTT 24.9, D-dimer 1150. Sodium 138, potassium 2.7, chloride 97, bicarbonate 34, BUN 7, creatinine 0.5, serum glucose 133, calcium 9.5, magnesium 2, total bilirubin 0.3, AST 58, ALT 58, alkaline phosphate 123. Troponin I less than 0.015. Lipase 136. SARS-CoV-2 PCR negative. IMAGING DATA: Chest x-ray, no acute findings. CTA of the chest, preliminary report, no PE, no acute findings. EKG: Normal sinus rhythm at the rate of 74, some T wave inversions in anterior leads.No significant changes. ASSESSMENT AND PLAN: This is a 65-year-old female who presents with chest pain. 1. Chest pain: Rule out acute coronary syndrome. Troponin negative. Will follow serial enzymes and echo. Will keep her n.p.o. and consult cardiology for further recommendations. 2. History of hypertension: Continue chlorthalidone. Monitor potassium while she is on chlorthalidone. 3. Hypokalemia: Will replace. 4. Gastroesophageal reflux disease: Continue Protonix. 5. Hyperlipidemia: On statin. 6. Deep venous thrombosis prophylaxis: Sequential compression devices. DISPOSITION: Observation in [facility]. Expect to discharge home and follow up with family doctor. Job ID: [id number] [facility]
--- NOTE | 2021-03-10 11:08 | Ultrasound Report ---
BILATERAL LOWER EXTREMITY VENOUS DOPPLER HISTORY: elevated d dimer r/o DVT COMPARISON STUDY: None. FINDINGS: There is normal compressibility, flow, and augmentation within the bilateral lower extremit y deep venous systems. There is a round hypoechoic focus within the right calf located between the po sterior tibial and peroneal vessels which appears to demonstrate color flow. This measures approximat obie 1.6 cm. IMPRESSION: 1. No DVT within the right or left lower extremity. 2. There is a round hypoechoic focus within the right calf located between the posterior tibial and p eroneal vessels which appears to demonstrate color flow. This measures approximately 1.6 cm. Therefor e, this may represent a mass such as a neurogenic tumor/schwannoma. Follow-up dedicated MRI of the ri ght lower leg with contrast is recommended for further evaluation. ACT 112: Positive. There are findings on this exam that require communication between the performing entity and the patient following Patient Test Result Information Act ([place] Act 112) guidelines. Electronically signed by: Aubrey Hartley M.D. 03/10/2021 11:07 AM
[2021-03-10] MEDS ORDERED: ACETAMINOPHEN 325 MG TAB PO PRN (11:38)
[2021-03-10] MEDS ORDERED: NITROGLYCERIN SL 0.4 MG/TAB TAB SL PRN (11:38)
[2021-03-10] MEDS ORDERED: CHLORTHALIDONE 25 MG TAB PO SCH (11:38)
[2021-03-10] MEDS ORDERED: ONDANSETRON INJ 2 MG/ML 2 ML VIAL IV PRN (11:38)
[2021-03-10] MEDS ORDERED: ATORVASTATIN 40 MG TAB PO SCH (11:38)
[2021-03-10 14:40] LABS: BUN Creatinine Ratio 12.1 (10-20); Calcium 9.3 mg/dl (8.5-10.1); Creatinine Clr Calc Pharmacy 135.4 ml/min; Est GFR (African American) 123.6 ml/min; Est GFR (Non-African American) 106.6 ml/min; Potassium 4.1 mmol/L (3.5-5.1)
--- NOTE | 2021-03-10 16:45 | Cardiology Consultation ---
Date of Consultation March 10, 2021 Assessment & Plan (1) Atypical chest pain: EKG tracings performed x3 revealing T wave inversions in the anterior precordial leads V2 to V4 possibly suggestive of ischemia. Per review of her historical EKGs however she has had a nonspecific T wave abnormality in this territory, but it is slightly more pronounced today. Resting echocardiogram was within normal limits. Proceed with stress echocardiogram for further risk stratification. (2) Hypokalemia: Potassium was 2.7 today. Improved to 4.1. She has been on chlorthalidone for hypertension, this is likely contributed to her recurrent hypokalemia episodes with noted measurements of 2.9 in November 2020 and then again in December,. Per patient's recollection and per her outpatient chart, she had previously been treated with lisinopril, this was discontinued due to cough. It may be most prudent to discontinue her chlorthalidone at this time and transition her to losartan. (3) HTN (hypertension): As noted above, discontinue chlorthalidone, consider losartan. (4) High cholesterol: Continue atorvastatin 40 mg daily. History of Present Illness Attending Physician: Joni Lopez MD History of Present Illness Rekha Fitch is a 65-year-old female seen in cardiology consultation per the request of Dr. Dos Santos for the evaluation of chest discomfort and abnormal EKG. She states that yesterday she was in her normal state of health, she had been busy, and ate a late dinner that consisted of [place] food including spicy General Computational Chemist's chicken. She subsequently noted chest discomfort that was especially worse with deep breath. She presented to the emergency department, received nitroglycerin, and in the meantime, she has been chest pain-free. It is unclear as to whether or not the nitroglycerin had relieved her discomfort or if it went away on its own. Troponin I has been undetectable x3. Her recent history is notable for a TIA event earlier this year and was diagnosed with an 80% right internal carotid artery lesion for which she underwent right carotid endarterectomy on 12/24/2020. She returned to the operating room a second time to have a postoperative hematoma dressed. Her medical history is otherwise notable for hypertension and dyslipidemia. She has no family history of ischemic heart disease. She has a longstanding history of abnormal EKG with subtle T wave inversions in leads V2 and V3. She had previously undergone cardiac catheterization performed by Dr. Gomez at [facility] in 2012. The operative report from that procedure describes angiographically normal coronary arteries. 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, [employer] Allergies Allergy/AdvReac Type Severity Reaction Status Date / Time pseudoephedrine Allergy Severe IRREGULAR Verified 03/10/21 07:16 HEARTBEAT Home Medications Medication Instructions Recorded Confirmed Type chlorthalidone 25 mg tablet 25 mg PO QAM 12/13/20 03/10/21 History aspirin 81 mg tablet,delayed 81 mg PO QAM 03/10/21 03/10/21 History release (Aspirin Low Dose) atorvastatin 40 mg tablet (Lipitor) 40 mg PO QAM 03/10/21 03/10/21 History Patient History Medical History Carotid stenosis GERD (gastroesophageal reflux disease) HTN (hypertension) Hyperlipidemia Sciatica RT Transient ischemic attack (TIA) RECENT HOSPITALIZATION AT [facility] (NO CURRENT DEFICITS) -" 2 saturdays ago"- no deficits Surgical History H/O colonoscopy History of cardiac cath 8 YEARS AGO (NO STENTS) History of dilatation and curettage History of endometrial ablation History of esophagogastroduodenoscopy (EGD) History of laparoscopy History of tonsillectomy and adenoidectomy History of tooth extraction Family History Grandmother (Maternal) Colorectal cancer Hypertension Grandfather (Maternal) Cancer bladder CA Mother Cancer Father Family history of esophageal cancer Other No family history of adverse response to anesthesia Social History Smoking Status: Never smoker Second Hand Exposure: Yes ( A CHILD); Hx Alcohol Use: Yes (1-2 glasses wine 3 x a week) Alcohol type: wine Hx Substance Use: No Preferred Language: Welsh Communication Ability: Effective Rn Telehealth Required: No Beliefs That Will Affect Care: None marital status: Current Living Situation: Spouse current occupational status: employed 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 How many Children do You have: 1 Feels Safe at Home: Yes during the past year weight has: increased > 10 lbs Assistive Devices: Oxygen - at Night Review of Systems Review of Systems: All systems reviewed & are unremarkable except as noted in HPI & below Physical Exam 2 Constitutional: WD/WN, vitals as above Respiratory: normal respiratory effort, lungs clear to auscultation Cardiovascular: RRR, no murmur, no edema Gastrointestinal (Abdomen): normal bowel sounds, soft, nontender, no hepatosplenomegaly Neurologic: PERRL, EOMI, accommodation nl, no face palsy, no dysarthria Results & Data ([facility]) Vital Signs (Past 12 Hours) Vital Signs Temp Pulse Pulse Resp BP BP Pulse Ox 03/10/21 16:08 36.6 C 86 18 165/85 H 98 03/10/21 12:00 36.9 C 77 16 153/84 H 96 03/10/21 10:00 17 128/82 95 03/10/21 09:30 26 H 151/78 H 96 03/10/21 09:00 26 H 164/93 H 97 03/10/21 08:30 79 16 157/101 H 98 03/10/21 08:00 77 16 173/103 H 96 03/10/21 07:00 83 16 136/83 93 03/10/21 06:30 82 16 135/84 95 03/10/21 06:00 77 16 152/74 H 96 03/10/21 05:31 83 20 168/80 H 99 03/10/21 05:00 73 16 145/76 H 96 Laboratory Results Cardiac Enzymes 03/10/21 03/10/21 03/10/21 Range/Units 03:55 11:52 15:31 AST 58 H (15-37) U/L Troponin I < 0.015 < 0.015 < 0.015 (0-0.045) ng/ml Coagulation 03/10/21 Range/Units 03:55 APTT 24.9 (21.0-31.0) Seconds CBC 03/10/21 Range/Units 03:55 WBC 9.26 (4.8-10.8) K/uL RBC 4.55 (4.2-5.4) M/uL Hgb 14.9 (12.0-16.0) g/dL Hct 43.6 (37-47) % Plt Count 387 (130-400) K/uL Neut # (Auto) 5.62 (1.4-6.5) K/uL Lymph # (Auto) 2.60 (1.2-3.4) K/uL [place] # (Auto) 0.72 H (0.11-0.59) K/uL Eos # (Auto) 0.26 (0-0.5) K/uL Baso # (Auto) 0.03 (0-0.2) K/uL Comprehensive Metabolic Panel 03/10/21 03/10/21 Range/Units 03:55 14:12 Sodium 138 139 (136-145) mmol/L Potassium 2.7 L 4.1 D (3.5-5.1) mmol/L Chloride 97 L 105 (98-107) mmol/L Carbon Dioxide 34 H 28 (21-32) mmol/L BUN 7 5 L (7-18) mg/dl Creatinine 0.54 L 0.45 L (0.6-1.2) mg/dl Glucose 133 H 97 (70-99) mg/dl Calcium 9.5 9.3 (8.5-10.1) mg/dl AST 58 H (15-37) U/L ALT 58 (12-78) U/L Alkaline Phosphatase 123 H (45-117) U/L Total Protein 8.8 H (6.4-8.2) gm/dl Albumin 3.5 (3.4-5.0) gm/dl Intake and Output 03/10/21 03/10/21 03/10/21 06:59 14:59 22:59 Intake Total 100 / 100 200 / 200 Balance 100 / 100 200 / 200 Intake: IV 100 / 100 200 / 200 Potassium Chloride / Wtr 10 meq 100 / 100 200 / 200 In 100 ml @ 100 mls/hr IV Q1H STA Rx#:[id number] Other: Weight 82.1 kg 82.1 kg Weight Measurement Method Built in Bedscale Built in Bedscale Patient Weight 03/11/21 06:59 Weight 82.1 kg Diagnostic Findings SARS-CoV-2 screen was negative D-dimer elevated prompting CT angiogram which was negative for pulmonary emboli sm, hepatic steatosis noted. Lower extreme venous duplex revealed no DVT: A round hypoechoic focus was noted in the right calf for whichThat we decide that he was going to radiology recommended an MRI of the leg with contrast to be performed in the future for follow-up. (1) HTN (hypertension) Hypertension type: unspecified Qualified Code(s): I10 - Essential (primary) hypertension
--- NOTE | 2021-03-10 17:06 | Communication Note ---
Date of Service: March 10, 2021 Stress echocardiogram is negative for ischemia having achieved 6 minutes on the Edilson protocol. The resting wall motion was normal. The stress wall motion was normal. The EKG response to exercise was normal. Plan: Stable for discharge, chest pain was likely gastrointestinal and due to spicy foods late at night. Continue prior to hospital treatment with aspirin, atorvastatin. Recommend replacing chlorthalidone with losartan 25 mg daily. Repeat chemistry panel in 1 week. Follow-up with PCP with regards to hypertension, hypokalemia.
[2021-03-11] MEDS ORDERED: ASPIRIN 81 MG ECTAB PO SCH (09:00)
--- NOTE | 2021-03-11 15:07 | Hospitalist Progress Note ---
Date of Service March 11, 2021 delayed entry date of service 03/10/21 Assessment & Plan (1) Atypical chest pain: Plan: ASSESSMENT AND PLAN: This is a 65-year-old female who presents with chest pain. 1. Chest pain likely secondary to Acid Reflux Acute Coronary Syndrome Ruled out -- troponins negative x 3 ekg: no acute ischemia or infarct -- Morning Show Newscast Producer Dr. Malave consulted s/p Stress Echo: negative for inducible ischemia -- continue Aspirin, Lipitor 2. History of hypertension -- transition from Chlorthalidone to Losartan 25mg po daily as patient has hypokalemia from Chlorthalidone 3. Hypokalemia -- K 2.7 on admission replaced improved to 4 -- stop Chlorthalidone 4. Gastroesophageal reflux disease: -- Famotidine prescribed 5. Hyperlipidemia: On statin. 6. Elevated D dimer -- Dimer 1150 Ct chest: no PE Venous US: no DVT -- repeat level as outpatient 7. Abnormal Leg Doppler US -- Doppler US: 1. No DVT within the right or left lower extremity. 2. There is a round hypoechoic focus within the right calf located between the posterior tibial and peroneal vessels which appears to demonstrate color flow. This measures approximately 1.6 cm. Therefore, this may represent a mass such as a neurogenic tumor/schwannoma. Follow-up dedicated MRI of the right lower leg with contrast is recommended for further evaluation. plan of care discussed with patient in detail and at length all questions answered she is understanding, agreeable, comfortable with the plan of care Admission and Anticipated Discharge Date Admission Date: March 10, 2021 Subjective ff up for chest pain seen resting in bed, comfortable in good spirits states chest pain has not recurrence since admission no chest pain, dyspnea, palpitations, dizziness no other symptoms s/p stress echo states shes is ready and would like to be discharged Review of Systems Review of Systems: all noted and negative except for above Physical Exam Physical Exam: General- oriented x 3, not in distress, speaks in sentences with no effort or accessory muscle use Head- atraumatic Eyes- PERRL, EOMI, anicteric ENT- oropharynx clear Neck- supple, no JVD, no adenopathy, no thyromegaly; carotids +2/2, no bruits appreciated surgical scar on the right carotid area: healing well Lungs- clear to auscultation bilaterally, no rales/wheezes Heart- normal rate, regular rhythm; no murmur, no gallop, no rub appreciated Abdomen- normal bowel sounds, nondistended, soft, nontender, no masses or hepa tosplenomegaly Extremities- no pretibial edema, no calf tenderness; peripheral pulses intact r lower ext: no masses, tenderness Neuro- alert, oriented x 3; CN 2-12 grossly intact; motor 5/5 bilatera lly;sensation 100% on all extremities; no other gross focal neurologic deficits Skin- warm & dry Results & Data Results & Data ([facility]) Vital Signs (Past 12 Hours) all noted and reviewed including below
--- NOTE | 2021-03-11 15:13 | Discharge Summary ---
Date of Service March 11, 2021 Admission HPI Per Admitting Provider HISTORY OF PRESENT ILLNESS: This is a 65-year-old female with past medical history significant for hyperlipidemia, hypokalemia, hypomagnesemia, allergic rhinitis, hypertension, history of TIA, history of grade 1 diastolic CHF, history of internal carotid artery stenosis on the right side, dysplasia of cervix, sebaceous cyst, endometriosis, who presents with chest pain. The patient woke up with severe chest pain, in the middle of the chest. No radiation, no shortness of breath, no dizziness, no sweating, no cough. The patient received aspirin and nitro and currently the pain is resolved. Resting comfortably currently. Denies any fever or chills. No cough, no nausea, no abdominal pain. Normal bowel and bladder movements. Otherwise, ambulates and climbs steps okay. No headache, no dizziness, no blurred visions, no earache, no runny nose, no sore throat. Appetite is okay. Admission Exam Per Admitting Provider GENERAL: The patient is of moderate build, not in acute distress. VITAL SIGNS: Temperature 36.8, pulse 82, respiratory rate 16, blood pressure 135/84, oxygen 94% on room air. HEENT: Pupils equal, round and reactive to light. Oral mucosa moist. NECK: No JVD, no neck masses. CARDIOVASCULAR: S1 and S2 heard. Regular rate and rhythm. No murmur, no gallop. RESPIRATORY SYSTEM: Normal AP diameter. No accessory muscle use. No wheezing, no crackles. ABDOMEN: Soft, bowel sounds present, nontender, no distention. CENTRAL NERVOUS SYSTEM: Cranial nerves II-XII grossly intact, nonfocal. EXTREMITIES: No edema, no erythema. Principal Diagnosis Atypical Chest Pain, Acute Coronary Syndrome Ruled out Discharge Exam General- oriented x 3, not in distress, speaks in sentences with no effort or accessory muscle use Head- atraumatic Eyes- PERRL, EOMI, anicteric ENT- oropharynx clear Neck- supple, no JVD, no adenopathy, no thyromegaly; carotids +2/2, no bruits appreciated surgical scar on the right carotid area: healing well Lungs- clear to auscultation bilaterally, no rales/wheezes Heart- normal rate, regular rhythm; no murmur, no gallop, no rub appreciated Abdomen- normal bowel sounds, nondistended, soft, nontender, no masses or hepatosplenomegaly Extremities- no pretibial edema, no calf tenderness; peripheral pulses intact r lower ext: no masses, tenderness Neuro- alert, oriented x 3; CN 2-12 grossly intact; motor 5/5 bilaterally;sensation 100% on all extremities; no other gross focal neurologic deficits Skin- warm & dry Discharge Data Allergies Allergy/AdvReac Type Severity Reaction Status Date / Time pseudoephedrine Allergy Severe IRREGULAR Verified 03/10/21 07:16 HEARTBEAT Consultations 03/10/21 06:13 ED Decision to Admit Stat 03/10/21 11:38 Consult Cardiology Routine Ordered Studies 03/10/21 04:59 CT angio chest PE protocol Urgent FINDINGS: CTA: There is adequate opacification of the pulmonary arteries to the level of the subsegmental branches without convincing evidence of acute pulmonary embolism. The main pulmonary artery is dilated measuring up to 3.5 cm transversely. Mild atherosclerotic plaque of the nondilated thoracic aorta. No dissection.The heart is mildly enlarged. No pericardial effusion. CT CHEST: There are a few subcentimeter hypodense bilateral thyroid nodules. No pathologically enlarged lymph nodes are identified. No pneumothorax, pleural effusion, airspace consolidation or overt pulmonary edema. No suspicious pulmonary nodules or masses. The central airways are patent. No pneumoperitoneum. No acute process of the imaged upper abdomen. Hepatic steatosis. Unremarkable soft tissues. There is no acute fracture. Degenerative changes of the shoulders and spine. IMPRESSION: 1. No acute intrathoracic abnormality. 2. Cardiomegaly without pulmonary emboli. 3. Hepatic steatosis. 03/10/21 09:55 US venous doppler LE BI Routine FINDINGS: There is normal compressibility, flow, and augmentation within the bilateral lower extremity deep venous systems. There is a round hypoechoic focus within the right calf located between the posterior tibial and peroneal vessels which appears to demonstrate color flow. This measures approximately 1.6 cm. IMPRESSION: 1. No DVT within the right or left lower extremity. 2. There is a round hypoechoic focus within the right calf located between the posterior tibial and peroneal vessels which appears to demonstrate color flow. This measures approximately 1.6 cm. Therefore, this may represent a mass such as a neurogenic tumor/schwannoma. Follow-up dedicated MRI of the right lower leg with contrast is recommended for further evaluation. ACT 112: Positive. There are findings on this exam that require communication between the performing entity and the patient following Patient Test Result Information Act ([place] Act 112) guidelines. Hospital Course (1) Atypical chest pain: ASSESSMENT AND PLAN: This is a 65-year-old female who presents with chest pain. 1. Chest pain likely secondary to Acid Reflux Acute Coronary Syndrome Ruled out -- troponins negative x 3 ekg: no acute ischemia or infarct -- Spray Rig Operator Dr. Malave consulted s/p Stress Echo: negative for inducible ischemia -- continue Aspirin, Lipitor 2. Hypertension -- transition from Chlorthalidone to Losartan 25mg po daily as patient has hypokalemia from Chlorthalidone 3. Hypokalemia -- K 2.7 on admission replaced improved to 4 -- stop Chlorthalidone -- repeat BMP in 1 week 4. Gastroesophageal reflux disease: -- Famotidine prescribed 5. Hyperlipidemia: On statin. 6. Elevated D dimer -- Dimer 1150 Ct chest: no PE Venous US: no DVT -- repeat level as outpatient 7. Abnormal Leg Doppler US -- Doppler US: 1. No DVT within the right or left lower extremity. 2. There is a round hypoechoic focus within the right calf located between the posterior tibial and peroneal vessels which appears to demonstrate color flow. This measures approximately 1.6 cm. Therefore, this may represent a mass such as a neurogenic tumor/schwannoma. -- -- Further work up, management, and ff up as outpatient 8. Hepatic Steatosis -- seen onCT abd/pelvis -- Further work up, management, and ff up as outpatient plan of care discussed with patient in detail and at length all questions answered she is understanding, agreeable, comfortable with the plan of care Total Time Total Time Spent Total Time Spent (In Minutes): > 30 minutes Discharge Plan Discharge Items Patient Disposition: Home - Self-Care Reason For Visit: CHEST PAIN Discharge Diagnosis: Chest pain cough likely secondary to acid reflux Activity: Resume your previous activity Non-emergency contact: Primary Care Provider Call non-emergency contact if: you have any medication questions, your symptoms worsen, your pain is not controlled, your pain is worsening, your pain is unusual for you, your pain is concerning for you and you have a fever Follow-up/Referrals: Evelio Stephens MD [Primary Care Provider] - Diet: Heart Healthy Addtl Attending Provider Instructions: Please review medication list and follow instructions carefully. Your new medications include: Losartan Pepcid Try to eat foods rich in potassium including bananas, oranges, tomatoes, potatoes. Please follow-up with primary care physician in 1 week. The clinic will be calling for the appointment soon. Call primary care physician or return to the ER immediately if with worsening of symptoms. Pending Studies at Discharge: No Stand-Alone Forms: [facility] [employer], Smoking Cessation Medications and DC Order Prescriptions: New losartan 25 mg tablet 25 mg PO DAILY Qty: 30 RF: 2 famotidine [Pepcid] 40 mg tablet 40 mg PO DAILY Qty: 30 RF: 2 Continued atorvastatin [Lipitor] 40 mg tablet 40 mg PO QAM RF: 0 aspirin [Aspirin Low Dose] 81 mg Tablet,Delayed Release (Dr/Ec) 81 mg PO QAM RF: 0 Discontinued chlorthalidone 25 mg tablet 25 mg PO QAM RF: 0 Discharge Orders: Discharge Order (Routine); Ordered 03/10/21 Ordered By: Joni oLpez Admission Data Admit Date/Time: 03/10/21 06:33 Attending Provider: Joni Lopez Admit Provider: Johnny Dos Santos Primary Care Provider: Evelio Stephens Other Providers: Cristiano Butt ; Fili Malave ; Saqib Alegria ; Mauricio Gaxiola ; Misael Cox ; Farhan Zhao ; Anju Veliz ; Wilma Connolly ; Mary Majano ; Jameson Viera ; Johnny Dos Santos Other Interventions: Discharge Summary Assessment (RN) Last Done: 03/10/21 17:50
--- NOTE | 2021-03-13 15:15 | Electrocardiogram Report ---
Test Reason : Blood Pressure : / mmHG Vent. Rate : 070 BPM Atrial Rate : 070 BPM P-R Int : 142 ms QRS Dur : 100 ms QT Int : 422 ms P-R-T Axes : 057 024 069 degrees QTc Int : 455 ms Normal sinus rhythm Abnormal ECG When compared with ECG of 23-DEC-2020 19:15, QT has shortened Confirmed by Josh Lane ([id number]) on 03/13/2021 3:15:23 PM Referred By: REFERRED SELF Confirmed By:Josh Lane
--- NOTE | 2021-03-13 15:16 | Electrocardiogram Report ---
Test Reason : Blood Pressure : / mmHG Vent. Rate : 072 BPM Atrial Rate : 072 BPM P-R Int : 148 ms QRS Dur : 106 ms QT Int : 404 ms P-R-T Axes : 060 022 075 degrees QTc Int : 442 ms Normal sinus rhythm Abnormal ECG When compared with ECG of 10-MAR-2021 04:17, (unconfirmed) No significant change was found Confirmed by Josh Lane ([id number]) on 03/13/2021 3:16:01 PM Referred By: REFERRED SELF Confirmed By:Josh Lane
--- NOTE | 2021-03-13 15:16 | Electrocardiogram Report ---
Test Reason : Blood Pressure : / mmHG Vent. Rate : 074 BPM Atrial Rate : 074 BPM P-R Int : 146 ms QRS Dur : 102 ms QT Int : 424 ms P-R-T Axes : 059 023 080 degrees QTc Int : 470 ms Normal sinus rhythm Prolonged QT Abnormal ECG When compared with ECG of 10-MAR-2021 03:50, (unconfirmed) No significant change was found Confirmed by Josh Lane ([id number]) on 03/13/2021 3:15:46 PM Referred By: REFERRED SELF Confirmed By:Josh Lane
== END 2021-03-10 18:46 | disposition home or self-care (01) ==
LOC: ED 03:46 → EDINP 03:46 → 2N 11:30